=== PATIENT | male | born 1960 | race Two or more races ===

== ENCOUNTER 2017-10-20 19:20 | Emergency (ER) | payer MEDICAID, MEDICARE, OTHER ==
[~2017-10-20] VITALS: Ht 172.7 cm; Wt 102.1 kg
[~2017-10-20 19:20] MED LIST: HYDR-1421
[2017-10-20 20:34] VITALS: BP 130/84
[2017-10-20 21:07] LABS: Basophils # (auto) 0 uL; Basophils % (auto) 0.6 % (0.0-2.0); Eosinophils # (auto) 0.2 uL; Eosinophils % (auto) 2.1 % (0.0-7.0); Hematocrit 45.9 % (41.0-53.0); Hemoglobin 15.6 g/dL (13.5-17.5); Lymphocytes # (auto) 1.8 uL; Lymphocytes % (auto) 23.1 % (10.0-50.0); Mean Corpuscular Hgb Conc. 33.9 g/dL (32.0-36.0); Mean Corpuscular Volume 97.5 fL (80.0-100.0); Monocytes # (auto) 0.9 uL; Monocytes % (auto) 11.4 % (0.0-12.0); Neutrophils # (auto) 4.9 uL; Neutrophils % (auto) 62.8 % (37.0-80.0); Nucleated Red Blood Cells % 0.1 %; Platelet Count (auto) 144 10^3/uL (140-450); Red Blood Cells 4.71 10^6/uL (4.5-5.90); Red Cell Distribution Width 12.4 % (11.8-14.3); White Blood Cell 7.8 10^3/uL (4.4-10.8)
[2017-10-20 21:23] LABS: Albumin 3.7 g/dL (3.4-5.0); BUN/Creatinine Ratio 18.5; Bilirubin, Total 0.4 mg/dL (0.2-1.0); Calcium 8.9 mg/dL (8.5-10.1); Magnesium 2.4 mg/dL (1.6-2.6); Potassium 4.3 mmol/L (3.5-5.1); Total Protein 7.8 g/dL (6.4-8.2)
== END 2017-10-20 23:00 | disposition left against medical advice (07) ==
LOC: ER 19:20
DX: R07.9 Chest pain, unspecified (principal); Z53.21 Procedure and treatment not carried out due to patient leaving prior to being seen by health care provider
CPT/HCPCS: 36415; 71045; 80053; 83735; 83880; 85025; 93005

== ENCOUNTER 2018-01-11 11:06 | Emergency (ER) | payer OTHER ==
[~2018-01-11] VITALS: Ht 172.7 cm; Wt 96.2 kg
[2018-01-11 11:59] LABS: Basophils # (auto) 0 uL; Basophils % (auto) 0.4 % (0.0-2.0); Eosinophils # (auto) 0.1 uL; Eosinophils % (auto) 1.2 % (0.0-7.0); Hematocrit 46.1 % (41.0-53.0); Hemoglobin 15.6 g/dL (13.5-17.5); Lymphocytes # (auto) 1.4 uL; Lymphocytes % (auto) 20.4 % (10.0-50.0); Mean Corpuscular Hemoglobin 32.6 pg (28.0-32.0); Mean Corpuscular Hgb Conc. 33.7 g/dL (32.0-36.0); Mean Corpuscular Volume 96.8 fL (80.0-100.0); Monocytes # (auto) 0.8 uL; Monocytes % (auto) 11.4 % (0.0-12.0); Neutrophils # (auto) 4.5 uL; Neutrophils % (auto) 66.6 % (37.0-80.0); Nucleated Red Blood Cells % 0.2 %; Platelet Count (auto) 122 10^3/uL (140-450); Red Blood Cells 4.77 10^6/uL (4.5-5.90); Red Cell Distribution Width 12.8 % (11.8-14.3); White Blood Cell 6.8 10^3/uL (4.4-10.8)
[2018-01-11 12:20] LABS: Alanine Aminotransferase 23 U/L (16-61); Albumin 3.8 g/dL (3.4-5.0); Alkaline Phosphatase 90 U/L (45-117); Anion Gap 4 (5-15); Aspartate Aminotransferase 14 U/L (15-37); BUN/Creatinine Ratio 11.3; Bilirubin, Total 0.7 mg/dL (0.2-1.0); Blood Urea Nitrogen 17 mg/dL (7-18); Calcium 8.5 mg/dL (8.5-10.1); Carbon Dioxide 27 mmol/L (21-32); Chloride 107 mmol/L (98-107); GFR African American 62 mL/min; GFR Non-African American 51 mL/min; Glucose 113 mg/dL (74-106); Potassium 4.5 mmol/L (3.5-5.1); Sodium 138 mmol/L (136-145); Total Protein 7.3 g/dL (6.4-8.2)
[2018-01-11] MEDS ORDERED: ASPirin 81 mg TAB PO ONE (13:00)
[2018-01-11] MEDS ORDERED: NITROGLYCERIN 0.4 MG SL TAB SL ONE (13:00)
[2018-01-11 13:58] VITALS: BP 128/86
== END 2018-01-11 15:01 | disposition home or self-care (01) ==
LOC: EDBD 11:06 → ER 11:11
DX: R07.2 Precordial pain (principal); F41.9 Anxiety disorder, unspecified; I25.10 Atherosclerotic heart disease of native coronary artery without angina pectoris; I10 Essential (primary) hypertension; I25.2 Old myocardial infarction; F12.10 Cannabis abuse, uncomplicated; Z98.61 Coronary angioplasty status
CPT/HCPCS: 36415; 71045; 80053; 84484; 85025; 93005; 94761

== ENCOUNTER 2021-10-15 15:06 | Inpatient (IN) | payer MEDICARE, OTHER ==
[~2021-10-15] VITALS: Ht 172.7 cm; Wt 82.0 kg
[~2021-10-15 15:06] MED LIST changes: +ALLO300T2 PO; +CLOP75TA28 PO; +COLCPOW2 PO; -HYDR-1421; +INDO50CA82 PO
[2021-10-15 16:21] LABS: Basophils # (auto) 0 10 ^3/uL (0-0.2); Basophils % (auto) 0.3 % (0.0-2.0); Eosinophils # (auto) 0 10 ^3/uL (0-0.8); Eosinophils % (auto) 0.2 % (0.0-7.0); Hematocrit 42.8 % (41.0-53.0); Hemoglobin 14.3 g/dL (13.5-17.5); Lymphocytes # (auto) 0.4 10 ^3/uL (0.4-5.4); Lymphocytes % (auto) 5.1 % (10.0-50.0); Mean Corpuscular Hemoglobin 32.9 pg (28.0-32.0); Mean Corpuscular Hgb Conc. 33.5 g/dL (32.0-36.0); Mean Corpuscular Volume 98.2 fL (80.0-100.0); Monocytes # (auto) 0.6 10 ^3/uL (0-1.3); Monocytes % (auto) 7.3 % (0.0-12.0); Neutrophils # (auto) 7.3 10 ^3/uL (1.6-8.6); Neutrophils % (auto) 87.1 % (37.0-80.0); Red Blood Cells 4.36 10^6/uL (4.5-5.90); Red Cell Distribution Width 12.6 % (11.8-14.3); White Blood Cell 8.4 10^3/uL (4.4-10.8)
[2021-10-15] MEDS ORDERED: DexAMETHasone SOD PHOS 10MG/1ML VIAL INJ IV ONE (16:30)
[2021-10-15 16:40] LABS: Albumin 2.9 g/dL (3.4-5.0); Calcium 8.7 mg/dL (8.5-10.1); Magnesium 2.7 mg/dL (1.6-2.6); Potassium 4.2 mmol/L (3.5-5.1)
[2021-10-15 16:46] LABS: BUN/Creatinine Ratio 12.3; Bilirubin, Total 0.7 mg/dL (0.2-1.0); Total Protein 6.9 g/dL (6.4-8.2)
[2021-10-15] MEDS ORDERED: HEPARIN SODIUM (PORCINE) 5000 UNITS/ML 1ML VIAL IV ONE (18:15)
[2021-10-15] MEDS ORDERED: ASPirin 325 MG TAB PO ONE (18:15)
[2021-10-15] MEDS: LACTATED RINGER'S 1,000 ML IV ONE ×2 (18:15→18:27)
[2021-10-15] MEDS ORDERED: CLOPIDOGREL BISULFATE 75 MG TAB PO ONE (18:15)
[2021-10-15] MEDS ORDERED: ONDANSETRON HCL 4 MG/2 ML VIAL IV PRN (22:45)
[2021-10-15] MEDS ORDERED: HYDROcodone-ACET 5/325MG TAB PO PRN (22:45)
[2021-10-15] MEDS ORDERED: DOCUSATE SOD 100 MG CAP PO PRN (22:45)
[2021-10-15] MEDS ORDERED: NITROGLYCERIN 0.4 MG SL TAB SL PRN (23:30)
[2021-10-15] MEDS: DOXYCYCLINE 100MG/250ML 250 ML IV SCH (23:47)
[2021-10-16] MEDS: SODIUM CHLOR 0.9% PF (SALINE LOCK) 10ML VIAL/SYR IV SCH ×3 (05:25→23:15)
[2021-10-16] MEDS: MULTIPLE VITAMIN TAB PO SCH (09:53)
[2021-10-16] MEDS: ZINC SULFATE 220mg CAP or TAB PO SCH (09:53)
[2021-10-16] MEDS: DexAMETHasone SOD PHOS 10MG/1ML VIAL INJ IV SCH (09:53)
[2021-10-16] MEDS: ASPirin 81 mg TAB PO SCH (09:53)
[2021-10-16] MEDS: FAMOTIDINE (10MG/ML) 2ML VL IV SCH ×2 (09:53→23:14)
[2021-10-16] MEDS: ASCORBIC ACID 1,000 MG TAB PO SCH (09:54)
[2021-10-16] MEDS: CHOLECALCIFEROL (VITD3) 2,000 UNIT CAP/TAB PO SCH (09:54)
[2021-10-16] MEDS: HEPARIN SODIUM (PORCINE) 5000 UNITS/ML 1ML VIAL SC SCH ×2 (09:55→23:16)
[2021-10-16] MEDS: BUDESONIDE (INHALATION) 180 MCG IH IN SCH ×2 (10:00→19:37)
[2021-10-16] MEDS: DOXYCYCLINE 100MG/250ML 250 ML IV SCH ×2 (10:26→23:15)
[2021-10-16 10:35] LABS: Basophils # (auto) 0 10 ^3/uL (0-0.2); Basophils % (auto) 0.1 % (0.0-2.0); Eosinophils # (auto) 0 10 ^3/uL (0-0.8); Hematocrit 42.8 % (41.0-53.0); Hemoglobin 14.2 g/dL (13.5-17.5); Lymphocytes # (auto) 0.4 10 ^3/uL (0.4-5.4); Mean Corpuscular Hemoglobin 32.6 pg (28.0-32.0); Mean Corpuscular Hgb Conc. 33.2 g/dL (32.0-36.0); Mean Corpuscular Volume 98.4 fL (80.0-100.0); Monocytes # (auto) 0.6 10 ^3/uL (0-1.3); Monocytes % (auto) 6.2 % (0.0-12.0); Neutrophils # (auto) 9.2 10 ^3/uL (1.6-8.6); Neutrophils % (auto) 89.7 % (37.0-80.0); Red Blood Cells 4.35 10^6/uL (4.5-5.90); Red Cell Distribution Width 12.5 % (11.8-14.3); White Blood Cell 10.2 10^3/uL (4.4-10.8)
[2021-10-16 10:55] LABS: Potassium 4.5 mmol/L (3.5-5.1)
[2021-10-16 11:05] LABS: Albumin 2.7 g/dL (3.4-5.0); BUN/Creatinine Ratio 18.6; Bilirubin, Total 0.6 mg/dL (0.2-1.0); Calcium 8.8 mg/dL (8.5-10.1); Total Protein 7.1 g/dL (6.4-8.2)
[2021-10-16] MEDS ORDERED: REMDESIVIR PER PHARMACY 0 ML IV SCH (12:15)
[2021-10-16 13:52] LABS: Urine Bacteria NONE SEEN /hpf (None Seen); Urine Blood Negative /uL (Negative); Urine Specific Gravity 1.026 (1.001-1.035); Urine WBC 1 /hpf (0 - 3)
[2021-10-16] MEDS: ALBUTEROL SULF HFA 90MCG INH 200DOSE IN PRN ×2 (14:05→19:37)
[2021-10-16] MEDS ORDERED: REMDESIVIR 200 MG in NS 210ml LOADING DOSE ADULT IV ONE (15:00)
[2021-10-16] MEDS ORDERED: CHOL1TAB42 PO (17:55)
[2021-10-16] MEDS ORDERED: SIMV-13 PO (17:55)
[2021-10-16] MEDS ORDERED: CARV3.1240 PO (17:55)
[2021-10-16] MEDS: guaiFENesin-DM 100/10mg/5ml SYR PO PRN (21:47)
[2021-10-16] MEDS ORDERED: DEXTROSE (50%) 50ML SYRG IV PRN (22:15)
[2021-10-16] MEDS ORDERED: FUROSEMIDE 20 MG/2 ML VIAL IV ONE (22:15)
[2021-10-16] MEDS ORDERED: HEPARIN SODIUM (PORCINE) 5000 UNITS/ML 1ML VIAL ONE (22:58)
[2021-10-16 23:26] VITALS: BP 119/73
[2021-10-17] MEDS: ACCU-CHEK COMFORT CURVE STRIP VI SCH ×4 (00:08→17:49)
[2021-10-17] MEDS: InsuLIN REG 1unit/0.01ml Soln (100units/ml) SC SCH ×4 (00:14→18:23)
[2021-10-17] MEDS: guaiFENesin-DM 100/10mg/5ml SYR PO PRN ×4 (05:15→22:21)
[2021-10-17] MEDS: SODIUM CHLOR 0.9% PF (SALINE LOCK) 10ML VIAL/SYR IV SCH ×3 (05:51→22:20)
[2021-10-17] MEDS: BUDESONIDE (INHALATION) 180 MCG IH IN SCH ×2 (06:02→21:54)
[2021-10-17] MEDS: ALBUTEROL SULF HFA 90MCG INH 200DOSE IN PRN ×2 (06:02→21:54)
[2021-10-17 06:48] LABS: Amphetamine Screen, Urine NEGATIVE (NEGATIVE); Barbiturate Scree,Urine NEGATIVE (NEGATIVE); Benzodiazephine Screen, Urine NEGATIVE (NEGATIVE); Cannabinoid Screen, Urine NEGATIVE (NEGATIVE)
[2021-10-17 06:53] LABS: Cocaine Screen, Urine NEGATIVE (NEGATIVE); Opiate Scree,Urine NEGATIVE (NEGATIVE); Phencyclidine Screen, Urine NEGATIVE (NEGATIVE)
[2021-10-17 07:35] LABS: Basophils # (auto) 0 10 ^3/uL (0-0.2); Eosinophils # (auto) 0 10 ^3/uL (0-0.8); Hematocrit 43.9 % (41.0-53.0); Hemoglobin 14.8 g/dL (13.5-17.5); Lymphocytes # (auto) 0.4 10 ^3/uL (0.4-5.4); Lymphocytes % (auto) 2.7 % (10.0-50.0); Mean Corpuscular Hemoglobin 32.9 pg (28.0-32.0); Mean Corpuscular Hgb Conc. 33.6 g/dL (32.0-36.0); Mean Corpuscular Volume 97.8 fL (80.0-100.0); Monocytes # (auto) 0.8 10 ^3/uL (0-1.3); Monocytes % (auto) 5.7 % (0.0-12.0); Neutrophils # (auto) 13.1 10 ^3/uL (1.6-8.6); Neutrophils % (auto) 91.6 % (37.0-80.0); Nucleated Red Blood Cells % 0.1 %; Red Blood Cells 4.49 10^6/uL (4.5-5.90); Red Cell Distribution Width 12.8 % (11.8-14.3); White Blood Cell 14.3 10^3/uL (4.4-10.8)
[2021-10-17 07:46] LABS: INR 1.76 (0.9-1.15)
[2021-10-17 08:00] VITALS: BP 110/66
[2021-10-17 08:04] LABS: Lactic Acid w/Reflex 2.4 mmol/L (0.4-2.0)
[2021-10-17 08:05] LABS: Albumin 2.8 g/dL (3.4-5.0); BUN/Creatinine Ratio 21.8; Bilirubin, Total 0.6 mg/dL (0.2-1.0); Cholesterol 110 mg/dL (< 200); HDL Cholesterol 12 mg/dL (40-59); LDL Cholesterol 66 mg/dL (< 100); Magnesium 2.3 mg/dL (1.6-2.6); Total Protein 7.5 g/dL (6.4-8.2); Triglycerides 112 mg/dL (< 150)
[2021-10-17 08:06] LABS: Thyroid Stimulating Hormone 0.46 uIU/mL (0.358-3.74)
[2021-10-17 09:00] VITALS: BP 110/66
[2021-10-17] MEDS: MULTIPLE VITAMIN TAB PO SCH (09:27)
[2021-10-17] MEDS: FAMOTIDINE (10MG/ML) 2ML VL IV SCH ×2 (09:27→22:20)
[2021-10-17] MEDS: ASPirin 81 mg TAB PO SCH (09:27)
[2021-10-17] MEDS: ASCORBIC ACID 1,000 MG TAB PO SCH (09:27)
[2021-10-17] MEDS: IVERMECTIN 3 MG TAB PO SCH (09:27)
[2021-10-17] MEDS: DexAMETHasone SOD PHOS 10MG/1ML VIAL INJ IV SCH (09:28)
[2021-10-17] MEDS: CHOLECALCIFEROL (VITD3) 2,000 UNIT CAP/TAB PO SCH (09:28)
[2021-10-17] MEDS: CLOPIDOGREL BISULFATE 75 MG TAB PO SCH (09:28)
[2021-10-17] MEDS: ZINC SULFATE 220mg CAP or TAB PO SCH (09:28)
[2021-10-17] MEDS: DOXYCYCLINE 100MG/250ML 250 ML IV SCH ×2 (09:29→22:20)
[2021-10-17 09:32] LABS: CRP High Sensitivity > 19.0 mg/dL (< 0.3)
[2021-10-17] MEDS: HEPARIN SODIUM (PORCINE) 5000 UNITS/ML 1ML VIAL SC SCH ×2 (09:51→22:21)
[2021-10-17 13:00] VITALS: BP 113/62
[2021-10-17] MEDS: REMDESIVIR 100mg 100 MG in SODIUM CHL 0.9% 230 ML IV SCH (15:02)
[2021-10-17 16:56] VITALS: BP 113/63
[2021-10-17 20:00] VITALS: BP 124/96
[2021-10-17 22:00] VITALS: BP 124/96
[2021-10-17] MEDS: ATORVASTATIN 20 MG TAB PO SCH (22:20)
[2021-10-18] MEDS: InsuLIN REG 1unit/0.01ml Soln (100units/ml) SC SCH ×4 (00:36→17:54)
[2021-10-18] MEDS: guaiFENesin-DM 100/10mg/5ml SYR PO PRN ×3 (03:44→21:40)
[2021-10-18 05:00] VITALS: BP 153/75
[2021-10-18] MEDS: ACCU-CHEK COMFORT CURVE STRIP VI SCH ×4 (06:10→17:53)
[2021-10-18] MEDS: SODIUM CHLOR 0.9% PF (SALINE LOCK) 10ML VIAL/SYR IV SCH ×3 (06:13→21:43)
[2021-10-18 06:14] LABS: Basophils # (auto) 0 10 ^3/uL (0-0.2); Eosinophils # (auto) 0 10 ^3/uL (0-0.8); Hematocrit 41.6 % (41.0-53.0); Lymphocytes # (auto) 0.7 10 ^3/uL (0.4-5.4); Lymphocytes % (auto) 8.5 % (10.0-50.0); Mean Corpuscular Hemoglobin 33.1 pg (28.0-32.0); Mean Corpuscular Hgb Conc. 33.6 g/dL (32.0-36.0); Mean Corpuscular Volume 98.5 fL (80.0-100.0); Monocytes # (auto) 0.8 10 ^3/uL (0-1.3); Monocytes % (auto) 10.5 % (0.0-12.0); Neutrophils # (auto) 6.5 10 ^3/uL (1.6-8.6); Nucleated Red Blood Cells % 0.1 %; Red Blood Cells 4.22 10^6/uL (4.5-5.90); Red Cell Distribution Width 13.4 % (11.8-14.3)
[2021-10-18 06:23] LABS: Potassium 4.5 mmol/L (3.5-5.1)
[2021-10-18 06:33] LABS: Albumin 2.5 g/dL (3.4-5.0); BUN/Creatinine Ratio 24.1; Bilirubin, Total 0.7 mg/dL (0.2-1.0); Calcium 8.3 mg/dL (8.5-10.1); Total Protein 6.7 g/dL (6.4-8.2)
[2021-10-18] MEDS: BUDESONIDE (INHALATION) 180 MCG IH IN SCH ×2 (07:36→23:10)
[2021-10-18] MEDS: ALBUTEROL SULF HFA 90MCG INH 200DOSE IN PRN (07:36)
[2021-10-18] MEDS: DexAMETHasone SOD PHOS 10MG/1ML VIAL INJ IV SCH (09:38)
[2021-10-18] MEDS: ASPirin 81 mg TAB PO SCH (09:38)
[2021-10-18] MEDS: FAMOTIDINE (10MG/ML) 2ML VL IV SCH ×2 (09:38→21:40)
[2021-10-18] MEDS: DOXYCYCLINE 100MG/250ML 250 ML IV SCH ×2 (09:38→21:44)
[2021-10-18] MEDS: ASCORBIC ACID 1,000 MG TAB PO SCH (09:39)
[2021-10-18] MEDS: IVERMECTIN 3 MG TAB PO SCH (09:39)
[2021-10-18] MEDS: CLOPIDOGREL BISULFATE 75 MG TAB PO SCH (09:39)
[2021-10-18] MEDS: ZINC SULFATE 220mg CAP or TAB PO SCH (09:39)
[2021-10-18] MEDS: MULTIPLE VITAMIN TAB PO SCH (09:39)
[2021-10-18] MEDS: CHOLECALCIFEROL (VITD3) 2,000 UNIT CAP/TAB PO SCH (09:40)
[2021-10-18] MEDS: HEPARIN SODIUM (PORCINE) 5000 UNITS/ML 1ML VIAL SC SCH ×2 (09:49→21:44)
[2021-10-18] MEDS ORDERED: SALINE 0.65 % NASAL SPRAY 45ML BOTTLE EACHNOSTRI PRN (11:45)
[2021-10-18] MEDS ORDERED: diphenhdrAMINE HCL 25 MG CAP PO PRN (11:45)
[2021-10-18 14:00] VITALS: BP 108/76
[2021-10-18] MEDS: REMDESIVIR 100mg 100 MG in SODIUM CHL 0.9% 230 ML IV SCH (15:21)
[2021-10-18 17:06] VITALS: BP 129/69
[2021-10-18 20:00] VITALS: BP 148/77
[2021-10-18] MEDS: ATORVASTATIN 20 MG TAB PO SCH (21:40)
[2021-10-18] MEDS: MORPHINE SULFATE INJECTION 2 MG/ML SYRG IV PRN (22:08)
[2021-10-18 22:10] VITALS: BP 148/77
[2021-10-18] MEDS ORDERED: PROMETHAZINE W/CODEINE 5 ML ORAL SYRUP PO PRN (23:45)
[2021-10-18] MEDS ORDERED: LORazepam 0.5 MG TAB PO PRN (23:45)
[2021-10-19] MEDS: ACCU-CHEK COMFORT CURVE STRIP VI SCH ×4 (00:27→17:26)
[2021-10-19] MEDS: InsuLIN REG 1unit/0.01ml Soln (100units/ml) SC SCH ×4 (00:37→17:27)
[2021-10-19] MEDS: ALBUTEROL SULF HFA 90MCG INH 200DOSE IN PRN ×2 (00:54→09:27)
[2021-10-19 05:00] VITALS: BP 142/79
[2021-10-19] MEDS: SODIUM CHLOR 0.9% PF (SALINE LOCK) 10ML VIAL/SYR IV SCH ×3 (05:42→22:07)
[2021-10-19 07:31] LABS: Calcium 8.6 mg/dL (8.5-10.1); Potassium 4.6 mmol/L (3.5-5.1)
[2021-10-19 07:50] LABS: INR 1.31 (0.9-1.15)
[2021-10-19 09:00] VITALS: BP 120/64
[2021-10-19] MEDS: BUDESONIDE (INHALATION) 180 MCG IH IN SCH ×2 (09:27→22:00)
[2021-10-19] MEDS: MORPHINE SULFATE INJECTION 2 MG/ML SYRG IV PRN ×4 (11:00→18:17)
[2021-10-19] MEDS: ENOXAPARIN SOD 100 MG/1 ML SYRINGE SC SCH ×2 (11:00→22:08)
[2021-10-19] MEDS: ASCORBIC ACID 1,000 MG TAB PO SCH (11:00)
[2021-10-19] MEDS: MULTIPLE VITAMIN TAB PO SCH (11:00)
[2021-10-19] MEDS: CHOLECALCIFEROL (VITD3) 2,000 UNIT CAP/TAB PO SCH (11:00)
[2021-10-19] MEDS: FAMOTIDINE (10MG/ML) 2ML VL IV SCH ×2 (11:00→22:07)
[2021-10-19] MEDS: ZINC SULFATE 220mg CAP or TAB PO SCH (11:00)
[2021-10-19] MEDS: CLOPIDOGREL BISULFATE 75 MG TAB PO SCH (11:00)
[2021-10-19] MEDS: ASPirin 81 mg TAB PO SCH (11:00)
[2021-10-19] MEDS: DexAMETHasone SOD PHOS 10MG/1ML VIAL INJ IV SCH (11:00)
[2021-10-19] MEDS: DOXYCYCLINE 100MG/250ML 250 ML IV SCH ×2 (11:00→22:08)
[2021-10-19] MEDS: IVERMECTIN 3 MG TAB PO SCH (11:00)
[2021-10-19] MEDS ORDERED: MORPHINE SULFATE INJECTION 2 MG/ML SYRG IV PRN (12:00)
[2021-10-19] MEDS ORDERED: IOHEXOL 350 MG/ML 100ML IJ ONE (12:05)
[2021-10-19 12:30] VITALS: BP 139/75
[2021-10-19] MEDS ORDERED: LACTULOSE 20Gm/30ML SOLN PO PRN (13:00)
[2021-10-19] MEDS: REMDESIVIR 100mg 100 MG in SODIUM CHL 0.9% 230 ML IV SCH (15:49)
[2021-10-19 17:00] VITALS: BP 124/65
[2021-10-19] MEDS ORDERED: NITROGLYCERIN 0.2MG/HR TOPICAL PATCH TD ONE (17:15)
[2021-10-19] MEDS ORDERED: guaiFENesin-DM 100/10mg/5ml SYR PO PRN (17:15)
[2021-10-19] MEDS: ACETYLCYSTEINE ORAL for CIN 20%(200MG/ML) 4ML PO SCH ×2 (17:26→22:08)
[2021-10-19] MEDS: ACETAMINOPHEN 500 MG TAB PO PRN (18:17)
[2021-10-19 22:00] VITALS: BP 113/57
[2021-10-20] VITALS (30 sets, daily range): BP systolic 64–156; BP diastolic 39–100
[2021-10-20] MEDS: ACCU-CHEK COMFORT CURVE STRIP VI SCH ×4 (00:09→18:13)
[2021-10-20] MEDS: InsuLIN REG 1unit/0.01ml Soln (100units/ml) SC SCH ×5 (00:10→23:36)
[2021-10-20] MEDS: MORPHINE SULFATE INJECTION 2 MG/ML SYRG IV PRN ×2 (01:37→04:30)
[2021-10-20] MEDS: SODIUM CHLOR 0.9% PF (SALINE LOCK) 10ML VIAL/SYR IV SCH ×3 (06:14→23:00)
[2021-10-20] MEDS: ALBUTEROL SULF HFA 90MCG INH 200DOSE IN PRN (07:22)
[2021-10-20] MEDS: BUDESONIDE (INHALATION) 180 MCG IH IN SCH ×2 (07:22→22:00)
[2021-10-20 07:30] LABS: Basophils # (auto) 0 10 ^3/uL (0-0.2); Basophils % (auto) 0.1 % (0.0-2.0); Eosinophils # (auto) 0 10 ^3/uL (0-0.8); Eosinophils % (auto) 0.3 % (0.0-7.0); Hematocrit 42.7 % (41.0-53.0); Hemoglobin 14.4 g/dL (13.5-17.5); Lymphocytes # (auto) 0.8 10 ^3/uL (0.4-5.4); Lymphocytes % (auto) 7.2 % (10.0-50.0); Mean Corpuscular Hemoglobin 32.7 pg (28.0-32.0); Mean Corpuscular Hgb Conc. 33.7 g/dL (32.0-36.0); Mean Corpuscular Volume 97.1 fL (80.0-100.0); Monocytes # (auto) 0.3 10 ^3/uL (0-1.3); Monocytes % (auto) 2.4 % (0.0-12.0); Neutrophils # (auto) 10.5 10 ^3/uL (1.6-8.6); Nucleated Red Blood Cells % 0.1 %; Red Cell Distribution Width 13.2 % (11.8-14.3); White Blood Cell 11.6 10^3/uL (4.4-10.8)
[2021-10-20 07:31] LABS: INR 1.41 (0.9-1.15); Partial Thromboplastin Time 31.4 sec (23.6-33.0)
[2021-10-20 07:39] LABS: Potassium 4.3 mmol/L (3.5-5.1)
[2021-10-20 08:07] LABS: Albumin 2.4 g/dL (3.4-5.0); BUN/Creatinine Ratio 23.5; Bilirubin, Total 0.8 mg/dL (0.2-1.0); Calcium 8.4 mg/dL (8.5-10.1); Total Protein 6.8 g/dL (6.4-8.2)
[2021-10-20] MEDS ORDERED: VERAPAMIL 2.5MG/ML INJ 2ML VIAL IV ONE ×2 (08:59→17:32)
[2021-10-20] MEDS ORDERED: LIDOCAINE 2%HCL (LOCAL ANESTH.) INJ 20ML MDV ONE ×2 (08:59→16:36)
[2021-10-20] MEDS ORDERED: HEPARIN IN NS 1000Units/500mL 0 ML ONE (08:59)
[2021-10-20] MEDS ORDERED: HEPARIN SODIUM (PORCINE) 5000 UNITS/ML 1ML VIAL ONE ×3 (08:59→18:14)
[2021-10-20] MEDS ORDERED: IOHEXOL 350 MG/ML 100ML IJ ONE (08:59)
[2021-10-20] MEDS ORDERED: SODIUM CHL 0.9% 0 ML ONE ×2 (09:06→16:44)
[2021-10-20] MEDS ORDERED: ANGIOMAX 250 MG VIAL IV ONE ×2 (09:06→16:44)
[2021-10-20] MEDS ORDERED: MIDAZOLAM HCL 2MG/2ML 2ml VIAL (1mg/ml) ONE (09:06)
[2021-10-20] MEDS ORDERED: fentaNYL CITRATE 100 MCG/2 ML VL ONE (09:06)
[2021-10-20] MEDS: CLOPIDOGREL BISULFATE 75 MG TAB PO SCH (10:00)
[2021-10-20] MEDS: CHOLECALCIFEROL (VITD3) 2,000 UNIT CAP/TAB PO SCH (10:00)
[2021-10-20] MEDS: NITROGLYCERIN 0.2MG/HR TOPICAL PATCH TD SCH (10:00)
[2021-10-20] MEDS: ENOXAPARIN SOD 100 MG/1 ML SYRINGE SC SCH ×2 (10:00→22:00)
[2021-10-20] MEDS: IVERMECTIN 3 MG TAB PO SCH (10:00)
[2021-10-20] MEDS: ACETYLCYSTEINE ORAL for CIN 20%(200MG/ML) 4ML PO SCH ×2 (10:00→23:00)
[2021-10-20] MEDS: ASCORBIC ACID 1,000 MG TAB PO SCH (10:00)
[2021-10-20] MEDS: FAMOTIDINE (10MG/ML) 2ML VL IV SCH ×2 (10:36→23:00)
[2021-10-20] MEDS: DOXYCYCLINE 100MG/250ML 250 ML IV SCH (10:36)
[2021-10-20] MEDS: ZINC SULFATE 220mg CAP or TAB PO SCH (10:38)
[2021-10-20] MEDS: MULTIPLE VITAMIN TAB PO SCH (10:38)
[2021-10-20] MEDS: ASPirin 81 mg TAB PO SCH (10:45)
[2021-10-20] MEDS: DexAMETHasone SOD PHOS 10MG/1ML VIAL INJ IV SCH (11:30)
[2021-10-20] MEDS ORDERED: ETOMIDATE (2MG/ML) 20ML VIAL IV ONE (11:52)
[2021-10-20] MEDS ORDERED: SUCCINYLCHOLINE CHLORIDE 20 MG/ML 10ML VIAL IV ONE (11:52)
[2021-10-20] MEDS ORDERED: ROCURONIUM 10MG/ML 10ML VIAL IV ONE ×2 (11:52→22:01)
[2021-10-20] MEDS ORDERED: NOREPINEPHRINE 8 MG/250ML KIT 250 ML IV ONE (11:57)
[2021-10-20] MEDS ORDERED: PROPOFOL 100 ML IV ONE (11:57)
[2021-10-20] MEDS ORDERED: MIDAZOLAM DRIP 50 mg/50mL 50 ML IV ONE (11:57)
[2021-10-20] MEDS ORDERED: fentaNYL Drip 2500mCg/250mlNS 250 ML IV ONE (11:57)
[2021-10-20] MEDS: MIDAZOLAM DRIP 50 mg/50mL 50 ML IV SCH ×3 (12:50→23:30)
[2021-10-20] MEDS ORDERED: IODIXANOL 320MG/ML 100ML BTL IV ONE (16:36)
[2021-10-20] MEDS ORDERED: HEPARIN IN NS 1000Units/500mL 1,500 ML ONE (16:37)
[2021-10-20] MEDS ORDERED: SODIUM BICARBONATE 8.4 % INJ 50ML VIAL IV ONE ×2 (17:26→21:30)
[2021-10-20] MEDS ORDERED: NOREPINEPHRINE 8 MG/250ML KIT 250 ML IV SCH (17:45)
[2021-10-20] MEDS ORDERED: PHENYLEPHRINE IV 250 ML IV ONE (17:50)
[2021-10-20] MEDS: PROPOFOL 100 ML IV SCH ×2 (18:12→22:00)
[2021-10-20] MEDS: fentaNYL Drip 2500mCg/250mlNS 250 ML IV SCH (18:12)
[2021-10-20] MEDS ORDERED: HEPARIN 1,000 UNITS/ml 1ML VIAL ONE ×2 (18:14→18:19)
[2021-10-20] MEDS ORDERED: HEPARIN DRIP/D5W 100UNITS/ML 250 ML IV ONE (18:19)
[2021-10-20] MEDS ORDERED: EPINEPHrine HCL 250 ML IV ONE (19:01)
[2021-10-20] MEDS ORDERED: VASOPRESSIN 20 UNIT/ML ONE (19:18)
[2021-10-20 19:45] LABS: Hematocrit 43.8 % (41.0-53.0); Hemoglobin 13.9 g/dL (13.5-17.5); Mean Corpuscular Hemoglobin 31.8 pg (28.0-32.0); Mean Corpuscular Hgb Conc. 31.7 g/dL (32.0-36.0); Mean Corpuscular Volume 100.4 fL (80.0-100.0); Red Blood Cells 4.36 10^6/uL (4.5-5.90); Red Cell Distribution Width 14.2 % (11.8-14.3); White Blood Cell 26.1 10^3/uL (4.4-10.8)
[2021-10-20 19:48] LABS: Basophils % (manual) 0 (0.0-2.0); Blast Cells 0; Eosinophils % (manual) 0 (0-7); Metamyelocytes % 0; Myelocytes % 0; Reactive Lymphocytes 0
[2021-10-20] MEDS: PHENYLEPHRINE INJ 80 MG in SODIUM CHL 0.9% 242 ML IV SCH (20:00)
[2021-10-20 20:15] LABS: INR 1.82 (0.9-1.15)
[2021-10-20] MEDS: NOREPINEPHRINE BITARTRATE 32 MG in SODIUM CHL 0.9% 218 ML IV SCH (20:15)
[2021-10-20 20:17] LABS: Band Neutrophils % (manual) 2; Lymphocytes % (manual) 3 (10.0-50.0); Monocytes % (manual) 1 (0-12); Promyelocytes % 1
[2021-10-20 20:25] LABS: Partial Thromboplastin Time > 139.0 sec (23.6-33.0)
[2021-10-20] MEDS ORDERED: VASOPRESSIN 50 UNITS in D5W 5% 247.5 ML IV SCH (20:45)
[2021-10-20] MEDS: EPINEPHrine HCL 250 ML IV SCH (20:45)
[2021-10-20] MEDS ORDERED: BUMETANIDE 1mg/4ml VIAL (0.25mg/ml) ONE (20:54)
[2021-10-20] MEDS ORDERED: BUMETANIDE INJECTION 10 ML ONE (20:54)
[2021-10-20] MEDS ORDERED: SODIUM BICARBONATE 8.4% INJ 50ML SYRINGE ONE (21:28)
[2021-10-20] MEDS ORDERED: ROCURONIUM BROMIDE 1,000 MG in D5W 5% 150 ML IV SCH (21:30)
[2021-10-20] MEDS ORDERED: BUMETANIDE 2.5mg/10ml (0.25 mg/ml) INJ IV ONE (21:30)
[2021-10-20] MEDS: REMDESIVIR 100mg 100 MG in SODIUM CHL 0.9% 230 ML IV SCH (22:00)
[2021-10-21] VITALS (28 sets, daily range): BP systolic 0–145; BP diastolic 0–106
[2021-10-21] MEDS ORDERED: ENOXAPARIN SOD 100 MG/1 ML SYRINGE SC SCH (00:45)
[2021-10-21] MEDS: PROPOFOL 100 ML IV SCH ×6 (01:00→21:14)
[2021-10-21 01:38] LABS: INR 1.64 (0.9-1.15)
[2021-10-21 01:41] LABS: Partial Thromboplastin Time 74.9 sec (23.6-33.0)
[2021-10-21 01:51] LABS: Albumin 2.1 g/dL (3.4-5.0); BUN/Creatinine Ratio 14.2; Calcium 7.4 mg/dL (8.5-10.1); Potassium 4.5 mmol/L (3.5-5.1)
[2021-10-21 01:54] LABS: Bilirubin, Total 1.3 mg/dL (0.2-1.0); Total Protein 6.5 g/dL (6.4-8.2)
[2021-10-21] MEDS: MIDAZOLAM DRIP 50 mg/50mL 50 ML IV SCH ×5 (04:00→21:15)
[2021-10-21 04:47] LABS: Hematocrit 44.4 % (41.0-53.0); Mean Corpuscular Hgb Conc. 33.7 g/dL (32.0-36.0); Mean Corpuscular Volume 97.9 fL (80.0-100.0); Red Blood Cells 4.54 10^6/uL (4.5-5.90); Red Cell Distribution Width 13.9 % (11.8-14.3); White Blood Cell 21.8 10^3/uL (4.4-10.8)
[2021-10-21 04:50] LABS: Basophils % (manual) 0 (0.0-2.0); Blast Cells 0; Eosinophils % (manual) 0 (0-7); Metamyelocytes % 0; Monocytes % (manual) 0 (0-12); Myelocytes % 0; Promyelocytes % 0; Reactive Lymphocytes 0
[2021-10-21 04:59] LABS: INR 1.6 (0.9-1.15)
[2021-10-21 05:10] LABS: BUN/Creatinine Ratio 16.5; Band Neutrophils % (manual) 5; Calcium 7.5 mg/dL (8.5-10.1); Lymphocytes % (manual) 6 (10.0-50.0); Magnesium 2.7 mg/dL (1.6-2.6)
[2021-10-21] MEDS: InsuLIN REG 1unit/0.01ml Soln (100units/ml) SC SCH ×4 (05:12→20:37)
[2021-10-21 05:29] LABS: Bilirubin, Total 1.6 mg/dL (0.2-1.0); Total Protein 6.6 g/dL (6.4-8.2)
[2021-10-21] MEDS: ACCU-CHEK COMFORT CURVE STRIP VI SCH ×5 (05:52→20:06)
[2021-10-21] MEDS: SODIUM CHLOR 0.9% PF (SALINE LOCK) 10ML VIAL/SYR IV SCH ×3 (06:15→22:11)
[2021-10-21] MEDS: fentaNYL Drip 2500mCg/250mlNS 250 ML IV SCH ×2 (07:15→19:05)
[2021-10-21] MEDS: NITROGLYCERIN 0.2MG/HR TOPICAL PATCH TD SCH (10:00)
[2021-10-21 10:04] LABS: INR 1.56 (0.9-1.15); Partial Thromboplastin Time 57.6 sec (23.6-33.0)
[2021-10-21] MEDS: FAMOTIDINE (10MG/ML) 2ML VL IV SCH (10:28)
[2021-10-21] MEDS: DexAMETHasone SOD PHOS 10MG/1ML VIAL INJ IV SCH (10:28)
[2021-10-21] MEDS: ASPirin 81 mg TAB PO SCH (10:29)
[2021-10-21] MEDS: ZINC SULFATE 220mg CAP or TAB PO SCH (10:29)
[2021-10-21] MEDS ORDERED: DEXTROSE (50%) 50ML SYRG IV PRN ×2 (10:30→10:45)
[2021-10-21] MEDS: CLOPIDOGREL BISULFATE 75 MG TAB PO SCH (10:31)
[2021-10-21] MEDS: MULTIPLE VITAMIN TAB PO SCH (10:31)
[2021-10-21] MEDS: IVERMECTIN 3 MG TAB PO SCH (10:32)
[2021-10-21] MEDS: CHOLECALCIFEROL (VITD3) 2,000 UNIT CAP/TAB PO SCH (10:32)
[2021-10-21] MEDS: ASCORBIC ACID 1,000 MG TAB PO SCH (10:32)
[2021-10-21] MEDS ORDERED: MEROPENEM 500MG IVPB 50 ML IV ONE (11:30)
[2021-10-21] MEDS ORDERED: InsuLIN REG 1unit/0.01ml Soln (100units/ml) SC SCH (12:00)
[2021-10-21] MEDS ORDERED: ACCU-CHEK COMFORT CURVE STRIP VI SCH (12:00)
[2021-10-21] MEDS ORDERED: SODIUM BICARBONATE 8.4% INJ 50ML SYRINGE IV ONE (12:35)
[2021-10-21] MEDS: HEPARIN DRIP/D5W 100UNITS/ML 250 ML IV SCH ×2 (13:10→23:30)
[2021-10-21] MEDS: PHENYLEPHRINE INJ 80 MG in SODIUM CHL 0.9% 242 ML IV SCH (13:16)
[2021-10-21] MEDS: NOREPINEPHRINE BITARTRATE 32 MG in SODIUM CHL 0.9% 218 ML IV SCH (13:16)
[2021-10-21 16:07] LABS: INR 1.52 (0.9-1.15)
[2021-10-21] MEDS: BUMETANIDE 2.5mg/10ml (0.25 mg/ml) INJ IV SCH (17:20)
[2021-10-21] MEDS: EPINEPHrine HCL 250 ML IV SCH (20:45)
[2021-10-21] MEDS: MEROPENEM 500MG IVPB 50 ML IV SCH (22:11)
[2021-10-21 22:35] LABS: INR 1.47 (0.9-1.15)
[2021-10-21 23:08] LABS: Partial Thromboplastin Time > 139.0 sec (23.6-33.0)
[2021-10-22] VITALS (27 sets, daily range): BP systolic 91–159; BP diastolic 33–90
[2021-10-22] MEDS: ACCU-CHEK COMFORT CURVE STRIP VI SCH ×7 (00:11→23:33)
[2021-10-22] MEDS: ACETAMINOPHEN 500 MG TAB PO PRN (00:11)
[2021-10-22] MEDS: InsuLIN REG 1unit/0.01ml Soln (100units/ml) SC SCH ×7 (00:41→23:34)
[2021-10-22] MEDS: PROPOFOL 100 ML IV SCH ×3 (00:48→14:00)
[2021-10-22] MEDS: MIDAZOLAM DRIP 50 mg/50mL 50 ML IV SCH ×3 (01:01→16:00)
[2021-10-22 05:29] LABS: Basophils # (auto) 0.2 10 ^3/uL (0-0.2); Eosinophils # (auto) 0 10 ^3/uL (0-0.8); Eosinophils % (auto) 0.1 % (0.0-7.0); Hematocrit 43.3 % (41.0-53.0); Hemoglobin 14.4 g/dL (13.5-17.5); Lymphocytes # (auto) 0.6 10 ^3/uL (0.4-5.4); Lymphocytes % (auto) 3.1 % (10.0-50.0); Mean Corpuscular Hemoglobin 32.2 pg (28.0-32.0); Mean Corpuscular Hgb Conc. 33.2 g/dL (32.0-36.0); Mean Corpuscular Volume 97.1 fL (80.0-100.0); Monocytes # (auto) 0.4 10 ^3/uL (0-1.3); Monocytes % (auto) 2.2 % (0.0-12.0); Neutrophils # (auto) 18.2 10 ^3/uL (1.6-8.6); Neutrophils % (auto) 93.6 % (37.0-80.0); Nucleated Red Blood Cells % 0.2 %; Red Blood Cells 4.46 10^6/uL (4.5-5.90); Red Cell Distribution Width 13.9 % (11.8-14.3); White Blood Cell 19.5 10^3/uL (4.4-10.8)
[2021-10-22] MEDS: BUMETANIDE 2.5mg/10ml (0.25 mg/ml) INJ IV SCH (05:39)
[2021-10-22 05:45] LABS: Albumin 1.7 g/dL (3.4-5.0); BUN/Creatinine Ratio 17.3; Calcium 7.1 mg/dL (8.5-10.1); Magnesium 2.5 mg/dL (1.6-2.6)
[2021-10-22 05:50] LABS: Lactic Acid w/Reflex 3.7 mmol/L (0.4-2.0)
[2021-10-22] MEDS: SODIUM CHLOR 0.9% PF (SALINE LOCK) 10ML VIAL/SYR IV SCH ×3 (06:01→21:51)
[2021-10-22 06:06] LABS: Bilirubin, Total 4.7 mg/dL (0.2-1.0); Total Protein 6.1 g/dL (6.4-8.2)
[2021-10-22 06:10] LABS: INR 1.37 (0.9-1.15); Partial Thromboplastin Time 39.9 sec (23.6-33.0)
[2021-10-22] MEDS: fentaNYL Drip 2500mCg/250mlNS 250 ML IV SCH ×3 (08:46→19:00)
[2021-10-22] MEDS: DexAMETHasone SOD PHOS 10MG/1ML VIAL INJ IV SCH (11:09)
[2021-10-22] MEDS: PANTOPRAZOLE 40 MG/10 ML VIAL INJ IV SCH (11:09)
[2021-10-22] MEDS: ASPirin 81 mg TAB PO SCH (11:09)
[2021-10-22] MEDS: CHOLECALCIFEROL (VITD3) 2,000 UNIT CAP/TAB PO SCH (11:10)
[2021-10-22] MEDS: ZINC SULFATE 220mg CAP or TAB PO SCH (11:10)
[2021-10-22] MEDS: ASCORBIC ACID 1,000 MG TAB PO SCH (11:10)
[2021-10-22] MEDS: CLOPIDOGREL BISULFATE 75 MG TAB PO SCH (11:10)
[2021-10-22] MEDS: MEROPENEM 500MG IVPB 50 ML IV SCH ×2 (11:40→21:53)
[2021-10-22] MEDS ORDERED: ROCURONIUM 10MG/ML 10ML VIAL IV ONE (12:00)
[2021-10-22] MEDS ORDERED: fentaNYL Drip 2500mCg/250mlNS 250 ML IV SCH (12:00)
[2021-10-22] MEDS ORDERED: DEXTROSE (50%) 50ML SYRG IV PRN (13:30)
[2021-10-22 14:21] LABS: INR 1.28 (0.9-1.15); Partial Thromboplastin Time 36.6 sec (23.6-33.0)
[2021-10-22] MEDS: NOREPINEPHRINE BITARTRATE 32 MG in SODIUM CHL 0.9% 218 ML IV SCH (17:03)
[2021-10-22 22:52] LABS: INR 1.26 (0.9-1.15); Partial Thromboplastin Time 48.8 sec (23.6-33.0)
[2021-10-23] VITALS (38 sets, daily range): BP systolic 93–164; BP diastolic 46–105
[2021-10-23] MEDS: MIDAZOLAM DRIP 50 mg/50mL 50 ML IV SCH ×5 (00:02→21:12)
[2021-10-23] MEDS: PROPOFOL 100 ML IV SCH ×3 (00:08→12:17)
[2021-10-23] MEDS: ACCU-CHEK COMFORT CURVE STRIP VI SCH ×5 (03:48→23:54)
[2021-10-23] MEDS: InsuLIN REG 1unit/0.01ml Soln (100units/ml) SC SCH ×6 (03:48→23:55)
[2021-10-23] MEDS: SODIUM CHLOR 0.9% PF (SALINE LOCK) 10ML VIAL/SYR IV SCH ×3 (05:31→22:05)
[2021-10-23] MEDS: HEPARIN DRIP/D5W 100UNITS/ML 250 ML IV SCH ×2 (06:06→23:30)
[2021-10-23 06:18] LABS: Basophils # (auto) 0.1 10 ^3/uL (0-0.2); Basophils % (auto) 0.7 % (0.0-2.0); Eosinophils # (auto) 0 10 ^3/uL (0-0.8); Hematocrit 45.3 % (41.0-53.0); INR 1.28 (0.9-1.15); Lymphocytes # (auto) 0.7 10 ^3/uL (0.4-5.4); Lymphocytes % (auto) 3.3 % (10.0-50.0); Mean Corpuscular Hemoglobin 32.2 pg (28.0-32.0); Mean Corpuscular Hgb Conc. 33.1 g/dL (32.0-36.0); Mean Corpuscular Volume 97.3 fL (80.0-100.0); Monocytes # (auto) 0.8 10 ^3/uL (0-1.3); Monocytes % (auto) 3.9 % (0.0-12.0); Neutrophils # (auto) 18.8 10 ^3/uL (1.6-8.6); Neutrophils % (auto) 92.1 % (37.0-80.0); Partial Thromboplastin Time 64.9 sec (23.6-33.0); Red Blood Cells 4.66 10^6/uL (4.5-5.90); Red Cell Distribution Width 14.5 % (11.8-14.3); White Blood Cell 20.4 10^3/uL (4.4-10.8)
[2021-10-23 07:29] LABS: Potassium 4.6 mmol/L (3.5-5.1)
[2021-10-23 07:30] LABS: Albumin 2.3 g/dL (3.4-5.0); BUN/Creatinine Ratio 21.7; Bilirubin, Total 6.6 mg/dL (0.2-1.0); Calcium 8.1 mg/dL (8.5-10.1); Total Protein 6.8 g/dL (6.4-8.2)
[2021-10-23] MEDS ORDERED: BUMETANIDE 2.5mg/10ml (0.25 mg/ml) INJ IV SCH (10:00)
[2021-10-23] MEDS: ASPirin 81 mg TAB PO SCH (10:07)
[2021-10-23] MEDS: MEROPENEM 500MG IVPB 50 ML IV SCH ×2 (10:07→22:08)
[2021-10-23] MEDS: DexAMETHasone SOD PHOS 10MG/1ML VIAL INJ IV SCH (10:07)
[2021-10-23] MEDS: PANTOPRAZOLE 40 MG/10 ML VIAL INJ IV SCH (10:07)
[2021-10-23] MEDS: CLOPIDOGREL BISULFATE 75 MG TAB PO SCH (10:07)
[2021-10-23] MEDS: ZINC SULFATE 220mg CAP or TAB PO SCH (10:07)
[2021-10-23] MEDS: CHOLECALCIFEROL (VITD3) 2,000 UNIT CAP/TAB PO SCH (10:07)
[2021-10-23] MEDS: ASCORBIC ACID 1,000 MG TAB PO SCH (10:07)
[2021-10-23] MEDS ORDERED: INSULIN LANTUS (GLARGINE) 1 /0.01ml (100units/ml) SC ONE (12:30)
[2021-10-23 12:44] LABS: Lactic Acid w/Reflex 2.4 mmol/L (0.4-2.0)
[2021-10-23 12:50] LABS: INR 1.21 (0.9-1.15)
[2021-10-23 13:56] LABS: Partial Thromboplastin Time 76.3 sec (23.6-33.0)
[2021-10-23] MEDS: NOREPINEPHRINE BITARTRATE 32 MG in SODIUM CHL 0.9% 218 ML IV SCH (21:06)
[2021-10-23 22:13] LABS: INR 1.21 (0.9-1.15); Partial Thromboplastin Time 67.5 sec (23.6-33.0)
[2021-10-24] VITALS (46 sets, daily range): BP systolic 99–142; BP diastolic 58–93
[2021-10-24] MEDS: fentaNYL Drip 2500mCg/250mlNS 250 ML IV SCH ×2 (02:00→21:51)
[2021-10-24] MEDS: ACCU-CHEK COMFORT CURVE STRIP VI SCH ×6 (04:00→23:39)
[2021-10-24 04:39] LABS: Basophils # (auto) 0 10 ^3/uL (0-0.2); Basophils % (auto) 0.2 % (0.0-2.0); Eosinophils # (auto) 0 10 ^3/uL (0-0.8); Hematocrit 45.4 % (41.0-53.0); Hemoglobin 14.8 g/dL (13.5-17.5); Lymphocytes # (auto) 0.7 10 ^3/uL (0.4-5.4); Lymphocytes % (auto) 3.9 % (10.0-50.0); Mean Corpuscular Hemoglobin 32.2 pg (28.0-32.0); Mean Corpuscular Hgb Conc. 32.7 g/dL (32.0-36.0); Mean Corpuscular Volume 98.5 fL (80.0-100.0); Monocytes # (auto) 1.2 10 ^3/uL (0-1.3); Monocytes % (auto) 6.6 % (0.0-12.0); Neutrophils % (auto) 89.3 % (37.0-80.0); Nucleated Red Blood Cells % 0.1 %; Red Blood Cells 4.62 10^6/uL (4.5-5.90); Red Cell Distribution Width 14.7 % (11.8-14.3); White Blood Cell 17.9 10^3/uL (4.4-10.8)
[2021-10-24] MEDS: InsuLIN REG 1unit/0.01ml Soln (100units/ml) SC SCH ×6 (04:40→23:41)
[2021-10-24 04:52] LABS: Protein, Urine 27.7 mg/dL (0.0-11.9)
[2021-10-24 04:56] LABS: Lactic Acid w/Reflex 2.4 mmol/L (0.4-2.0)
[2021-10-24 05:13] LABS: Potassium 5.2 mmol/L (3.5-5.1)
[2021-10-24 05:18] LABS: BUN/Creatinine Ratio 26.7; Calcium 8.7 mg/dL (8.5-10.1)
[2021-10-24 05:24] LABS: Urine Bacteria NONE SEEN /hpf (None Seen); Urine Blood TRACE /uL (Negative); Urine Specific Gravity 1.024 (1.001-1.035); Urine WBC 2 /hpf (0 - 3)
[2021-10-24] MEDS: HEPARIN DRIP/D5W 100UNITS/ML 250 ML IV SCH (05:24)
[2021-10-24 05:28] LABS: Bilirubin, Total 7.9 mg/dL (0.2-1.0); Total Protein 7.1 g/dL (6.4-8.2)
[2021-10-24] MEDS: SODIUM CHLOR 0.9% PF (SALINE LOCK) 10ML VIAL/SYR IV SCH ×3 (05:58→22:22)
[2021-10-24] MEDS: ASCORBIC ACID 1,000 MG TAB PO SCH (09:55)
[2021-10-24] MEDS: ZINC SULFATE 220mg CAP or TAB PO SCH (09:55)
[2021-10-24] MEDS: PANTOPRAZOLE 40 MG/10 ML VIAL INJ IV SCH (09:55)
[2021-10-24] MEDS: CLOPIDOGREL BISULFATE 75 MG TAB PO SCH (09:55)
[2021-10-24] MEDS: CHOLECALCIFEROL (VITD3) 2,000 UNIT CAP/TAB PO SCH (09:55)
[2021-10-24] MEDS: ASPirin 81 mg TAB PO SCH (09:55)
[2021-10-24] MEDS: DexAMETHasone SOD PHOS 10MG/1ML VIAL INJ IV SCH (09:55)
[2021-10-24] MEDS: MIDAZOLAM DRIP 50 mg/50mL 50 ML IV SCH ×2 (10:00→17:02)
[2021-10-24] MEDS: INSULIN LANTUS (GLARGINE) 1 /0.01ml (100units/ml) SC SCH (10:10)
[2021-10-24] MEDS: D5W 5% 1,000 ML IV SCH ×2 (11:31→19:00)
[2021-10-24] MEDS: MEROPENEM 500MG IVPB 50 ML IV SCH ×2 (12:49→21:55)
[2021-10-24] MEDS: PROPOFOL 100 ML IV SCH (16:53)
[2021-10-24] MEDS: NOREPINEPHRINE BITARTRATE 32 MG in SODIUM CHL 0.9% 218 ML IV SCH (18:45)
[2021-10-24] MEDS ORDERED: ATORVASTATIN 20 MG TAB PO SCH (22:00)
[2021-10-25] VITALS (33 sets, daily range): BP systolic 64–130; BP diastolic 42–83
[2021-10-25] MEDS: D5W 5% 1,000 ML IV SCH ×2 (01:15→07:56)
[2021-10-25] MEDS: MIDAZOLAM DRIP 50 mg/50mL 50 ML IV SCH ×4 (01:48→21:40)
[2021-10-25] MEDS: ACCU-CHEK COMFORT CURVE STRIP VI SCH ×5 (03:47→20:00)
[2021-10-25] MEDS: InsuLIN REG 1unit/0.01ml Soln (100units/ml) SC SCH ×5 (03:50→20:00)
[2021-10-25 05:11] LABS: Basophils # (auto) 0.3 10 ^3/uL (0-0.2); Basophils % (auto) 1.3 % (0.0-2.0); Eosinophils # (auto) 0.3 10 ^3/uL (0-0.8); Eosinophils % (auto) 1.6 % (0.0-7.0); Hematocrit 43.4 % (41.0-53.0); Hemoglobin 14.4 g/dL (13.5-17.5); Lymphocytes # (auto) 0.6 10 ^3/uL (0.4-5.4); Lymphocytes % (auto) 3.2 % (10.0-50.0); Mean Corpuscular Hgb Conc. 33.3 g/dL (32.0-36.0); Mean Corpuscular Volume 99.3 fL (80.0-100.0); Monocytes # (auto) 1.3 10 ^3/uL (0-1.3); Monocytes % (auto) 6.3 % (0.0-12.0); Neutrophils # (auto) 18.1 10 ^3/uL (1.6-8.6); Neutrophils % (auto) 87.6 % (37.0-80.0); Nucleated Red Blood Cells % 0.1 %; Red Blood Cells 4.37 10^6/uL (4.5-5.90); Red Cell Distribution Width 14.3 % (11.8-14.3); White Blood Cell 20.6 10^3/uL (4.4-10.8)
[2021-10-25 05:22] LABS: INR 1.21 (0.9-1.15); Partial Thromboplastin Time 57.8 sec (23.6-33.0)
[2021-10-25 05:31] LABS: Lactic Acid w/Reflex 2.4 mmol/L (0.4-2.0)
[2021-10-25 05:41] LABS: Albumin 1.9 g/dL (3.4-5.0); BUN/Creatinine Ratio 32.2; Calcium 8.4 mg/dL (8.5-10.1); Total Protein 6.9 g/dL (6.4-8.2)
[2021-10-25] MEDS: SODIUM CHLOR 0.9% PF (SALINE LOCK) 10ML VIAL/SYR IV SCH ×3 (05:55→22:00)
[2021-10-25] MEDS: Glucerna 1.2 Cal 1Liter BOTTLE GT SCH (05:55)
[2021-10-25 06:15] LABS: Bilirubin, Total 8.5 mg/dL (0.2-1.0)
[2021-10-25] MEDS ORDERED: SODIUM BICARBONATE 8.4% INJ 50ML SYRINGE ONE (09:17)
[2021-10-25] MEDS ORDERED: DEXTROSE 50% SYRINGE 50 ML IV ONE ×2 (09:18→09:19)
[2021-10-25] MEDS: ALBUTEROL SULF 2.5 MG/0.5ML(0.5%) NEB SOLN NEB PRN (09:46)
[2021-10-25] MEDS ORDERED: SODIUM ZIRCONIUM CYCL 10 GM PAK PO ONE (10:00)
[2021-10-25] MEDS ORDERED: D5W 5% 1,000 ML IV SCH (10:00)
[2021-10-25] MEDS ORDERED: DEXTROSE (50%) 50ML SYRG IV ONE ×2 (10:00→10:45)
[2021-10-25] MEDS ORDERED: SODIUM BICARBONATE 8.4 % INJ 50ML VIAL IV ONE ×2 (10:00→10:45)
[2021-10-25] MEDS: INSULIN LANTUS (GLARGINE) 1 /0.01ml (100units/ml) SC SCH (10:03)
[2021-10-25] MEDS: MEROPENEM 500MG IVPB 50 ML IV SCH ×2 (10:04→22:00)
[2021-10-25] MEDS: ZINC SULFATE 220mg CAP or TAB PO SCH (10:04)
[2021-10-25] MEDS: ASCORBIC ACID 1,000 MG TAB PO SCH (10:04)
[2021-10-25] MEDS: ASPirin 81 mg TAB PO SCH (10:04)
[2021-10-25] MEDS: CLOPIDOGREL BISULFATE 75 MG TAB PO SCH (10:04)
[2021-10-25] MEDS: CHOLECALCIFEROL (VITD3) 2,000 UNIT CAP/TAB PO SCH (10:04)
[2021-10-25] MEDS: PANTOPRAZOLE 40 MG/10 ML VIAL INJ IV SCH (10:04)
[2021-10-25] MEDS: DexAMETHasone SOD PHOS 10MG/1ML VIAL INJ IV SCH (10:04)
[2021-10-25] MEDS ORDERED: InsuLIN REG 1unit/0.01ml Soln (100units/ml) IV ONE (10:45)
[2021-10-25] MEDS: SODIUM ZIRCONIUM CYCL 10 GM PAK GT SCH ×3 (13:08→22:00)
[2021-10-25] MEDS: BUMETANIDE INJECTION 12.5 MG in GIVE UN-DILUTED 0 ML IV SCH (13:09)
[2021-10-25] MEDS: SOD CHL 0.45% 1,000 ML IV SCH ×4 (13:23→22:00)
[2021-10-25] MEDS: PROPOFOL 100 ML IV SCH (14:57)
[2021-10-25] MEDS: NOREPINEPHRINE BITARTRATE 32 MG in SODIUM CHL 0.9% 218 ML IV SCH (18:54)
[2021-10-25] MEDS: ACETAMINOPHEN 500 MG TAB PO PRN (20:10)
[2021-10-25] MEDS: fentaNYL Drip 2500mCg/250mlNS 250 ML IV SCH (22:00)
[2021-10-25] MEDS: HEPARIN DRIP/D5W 100UNITS/ML 250 ML IV SCH (23:30)
[2021-10-26] VITALS (42 sets, daily range): BP systolic 82–146; BP diastolic 52–81
[2021-10-26] MEDS: MIDAZOLAM DRIP 50 mg/50mL 50 ML IV SCH ×4 (01:30→23:40)
[2021-10-26] MEDS: ACCU-CHEK COMFORT CURVE STRIP VI SCH ×5 (04:00→18:01)
[2021-10-26] MEDS: InsuLIN REG 1unit/0.01ml Soln (100units/ml) SC SCH ×5 (04:00→17:26)
[2021-10-26 04:25] LABS: Basophils # (auto) 0.1 10 ^3/uL (0-0.2); Basophils % (auto) 0.3 % (0.0-2.0); Eosinophils # (auto) 0.3 10 ^3/uL (0-0.8); Eosinophils % (auto) 1.1 % (0.0-7.0); Hematocrit 39.1 % (41.0-53.0); Hemoglobin 12.6 g/dL (13.5-17.5); Lymphocytes # (auto) 1.2 10 ^3/uL (0.4-5.4); Lymphocytes % (auto) 5.1 % (10.0-50.0); Mean Corpuscular Hemoglobin 31.9 pg (28.0-32.0); Mean Corpuscular Hgb Conc. 32.4 g/dL (32.0-36.0); Mean Corpuscular Volume 98.5 fL (80.0-100.0); Monocytes # (auto) 0.7 10 ^3/uL (0-1.3); Monocytes % (auto) 2.7 % (0.0-12.0); Neutrophils # (auto) 21.6 10 ^3/uL (1.6-8.6); Neutrophils % (auto) 90.8 % (37.0-80.0); Nucleated Red Blood Cells % 0.1 %; Red Blood Cells 3.97 10^6/uL (4.5-5.90); Red Cell Distribution Width 14.4 % (11.8-14.3); White Blood Cell 23.8 10^3/uL (4.4-10.8)
[2021-10-26 04:32] LABS: INR 1.32 (0.9-1.15)
[2021-10-26] MEDS: fentaNYL Drip 2500mCg/250mlNS 250 ML IV SCH ×2 (04:40→17:25)
[2021-10-26 04:55] LABS: Potassium 5.3 mmol/L (3.5-5.1)
[2021-10-26 05:01] LABS: Albumin 1.8 g/dL (3.4-5.0); BUN/Creatinine Ratio 36.4; Bilirubin, Total 5.4 mg/dL (0.2-1.0); Total Protein 6.2 g/dL (6.4-8.2)
[2021-10-26] MEDS: SODIUM ZIRCONIUM CYCL 10 GM PAK GT SCH ×4 (06:20→22:00)
[2021-10-26] MEDS: SODIUM CHLOR 0.9% PF (SALINE LOCK) 10ML VIAL/SYR IV SCH ×3 (06:20→22:00)
[2021-10-26] MEDS: CLOPIDOGREL BISULFATE 75 MG TAB PO SCH (08:37)
[2021-10-26] MEDS: ASPirin 81 mg TAB PO SCH (08:38)
[2021-10-26] MEDS: ZINC SULFATE 220mg CAP or TAB PO SCH (08:38)
[2021-10-26] MEDS: PANTOPRAZOLE 40 MG/10 ML VIAL INJ IV SCH (08:38)
[2021-10-26] MEDS: ASCORBIC ACID 1,000 MG TAB PO SCH (08:38)
[2021-10-26] MEDS: CHOLECALCIFEROL (VITD3) 2,000 UNIT CAP/TAB PO SCH (08:38)
[2021-10-26] MEDS: DexAMETHasone SOD PHOS 10MG/1ML VIAL INJ IV SCH (08:38)
[2021-10-26] MEDS: INSULIN LANTUS (GLARGINE) 1 /0.01ml (100units/ml) SC SCH (09:44)
[2021-10-26] MEDS: MEROPENEM 500MG IVPB 50 ML IV SCH ×2 (09:49→22:00)
[2021-10-26] MEDS: NOREPINEPHRINE BITARTRATE 32 MG in SODIUM CHL 0.9% 218 ML IV SCH ×2 (10:00→18:45)
[2021-10-26] MEDS: BUMETANIDE INJECTION 12.5 MG in GIVE UN-DILUTED 0 ML IV SCH (10:45)
[2021-10-26] MEDS: SOD CHL 0.45% 1,000 ML IV SCH (13:40)
[2021-10-26] MEDS ORDERED: VANCOMYCIN PER PHARMACY 0 MG IV SCH (14:45)
[2021-10-26] MEDS ORDERED: FLUCONAZOLE 200MG/100ML 100 ML IV ONE (15:00)
[2021-10-26 15:46] LABS: Eosinophils # (auto) 0 10 ^3/uL (0-0.8); Lymphocytes # (auto) 0.4 10 ^3/uL (0.4-5.4); Monocytes # (auto) 0.2 10 ^3/uL (0-1.3)
[2021-10-26 15:48] LABS: Basophils # (auto) 0.1 10 ^3/uL (0-0.2); Basophils % (auto) 0.4 % (0.0-2.0); Eosinophils % (auto) 0.1 % (0.0-7.0); Hematocrit 38.8 % (41.0-53.0); Hemoglobin 12.6 g/dL (13.5-17.5); Mean Corpuscular Hemoglobin 32.4 pg (28.0-32.0); Mean Corpuscular Hgb Conc. 32.5 g/dL (32.0-36.0); Mean Corpuscular Volume 99.7 fL (80.0-100.0); Neutrophils # (auto) 19.5 10 ^3/uL (1.6-8.6); Neutrophils % (auto) 96.5 % (37.0-80.0); Red Blood Cells 3.89 10^6/uL (4.5-5.90); Red Cell Distribution Width 14.9 % (11.8-14.3); White Blood Cell 20.2 10^3/uL (4.4-10.8)
[2021-10-26] MEDS ORDERED: VANCOMYCIN 1GM/250ML 250 ML IV ONE (17:00)
[2021-10-26] MEDS: PROPOFOL 100 ML IV SCH (17:45)
[2021-10-26] MEDS: PHENYLEPHRINE IV 250 ML IV SCH (18:30)
[2021-10-27] VITALS (30 sets, daily range): BP systolic 104–148; BP diastolic 59–80
[2021-10-27] MEDS: ACCU-CHEK COMFORT CURVE STRIP VI SCH ×4 (00:16→17:45)
[2021-10-27] MEDS: InsuLIN REG 1unit/0.01ml Soln (100units/ml) SC SCH ×4 (00:18→18:00)
[2021-10-27] MEDS: SOD CHL 0.45% 1,000 ML IV SCH ×5 (00:25→19:24)
[2021-10-27] MEDS: PHENYLEPHRINE IV 250 ML IV SCH ×3 (02:50→19:30)
[2021-10-27] MEDS: MIDAZOLAM DRIP 50 mg/50mL 50 ML IV SCH ×4 (03:25→22:06)
[2021-10-27 04:38] LABS: Basophils # (auto) 0 10 ^3/uL (0-0.2); Basophils % (auto) 0.2 % (0.0-2.0); Eosinophils # (auto) 0 10 ^3/uL (0-0.8); Hematocrit 39.2 % (41.0-53.0); Hemoglobin 12.4 g/dL (13.5-17.5); Lymphocytes # (auto) 0.4 10 ^3/uL (0.4-5.4); Lymphocytes % (auto) 2.3 % (10.0-50.0); Mean Corpuscular Hemoglobin 31.6 pg (28.0-32.0); Mean Corpuscular Hgb Conc. 31.7 g/dL (32.0-36.0); Mean Corpuscular Volume 99.7 fL (80.0-100.0); Monocytes # (auto) 0.6 10 ^3/uL (0-1.3); Neutrophils # (auto) 18.4 10 ^3/uL (1.6-8.6); Neutrophils % (auto) 94.5 % (37.0-80.0); Nucleated Red Blood Cells % 0.1 %; Red Blood Cells 3.93 10^6/uL (4.5-5.90); White Blood Cell 19.5 10^3/uL (4.4-10.8)
[2021-10-27 05:08] LABS: Albumin 1.7 g/dL (3.4-5.0); Calcium 8.4 mg/dL (8.5-10.1); Magnesium 2.8 mg/dL (1.6-2.6)
[2021-10-27] MEDS: SODIUM ZIRCONIUM CYCL 10 GM PAK GT SCH ×3 (05:12→22:00)
[2021-10-27 05:18] LABS: BUN/Creatinine Ratio 36.5; Bilirubin, Total 3.9 mg/dL (0.2-1.0); Total Protein 6.4 g/dL (6.4-8.2)
[2021-10-27 05:27] LABS: Potassium 5.7 mmol/L (3.5-5.1)
[2021-10-27] MEDS: SODIUM CHLOR 0.9% PF (SALINE LOCK) 10ML VIAL/SYR IV SCH ×3 (05:54→22:00)
[2021-10-27] MEDS: fentaNYL Drip 2500mCg/250mlNS 250 ML IV SCH ×2 (08:01→22:00)
[2021-10-27] MEDS: MEROPENEM 500MG IVPB 50 ML IV SCH ×2 (09:07→22:00)
[2021-10-27] MEDS: DexAMETHasone SOD PHOS 10MG/1ML VIAL INJ IV SCH (10:16)
[2021-10-27] MEDS: PANTOPRAZOLE 40 MG/10 ML VIAL INJ IV SCH (10:17)
[2021-10-27] MEDS: ZINC SULFATE 220mg CAP or TAB PO SCH (10:24)
[2021-10-27] MEDS: CLOPIDOGREL BISULFATE 75 MG TAB PO SCH (10:24)
[2021-10-27] MEDS: ASPirin 81 mg TAB PO SCH (10:24)
[2021-10-27] MEDS: CHOLECALCIFEROL (VITD3) 2,000 UNIT CAP/TAB PO SCH (10:25)
[2021-10-27] MEDS: ASCORBIC ACID 1,000 MG TAB PO SCH (10:25)
[2021-10-27] MEDS: INSULIN LANTUS (GLARGINE) 1 /0.01ml (100units/ml) SC SCH (10:35)
[2021-10-27] MEDS: BUMETANIDE INJECTION 12.5 MG in GIVE UN-DILUTED 0 ML IV SCH (10:45)
[2021-10-27] MEDS: FLUCONAZOLE 200MG/100ML 100 ML IV SCH (12:53)
[2021-10-27] MEDS: NOREPINEPHRINE BITARTRATE 32 MG in SODIUM CHL 0.9% 218 ML IV SCH (14:10)
[2021-10-27] MEDS ORDERED: VANCOMYCIN 1GM/250ML 250 ML IV ONE (17:00)
[2021-10-27] MEDS: PROPOFOL 100 ML IV SCH (17:33)
[2021-10-27 18:58] LABS: BUN/Creatinine Ratio 38.1; Calcium 8.3 mg/dL (8.5-10.1)
[2021-10-27 19:37] LABS: Potassium 5.8 mmol/L (3.5-5.1)
[2021-10-28] VITALS (55 sets, daily range): BP systolic 89–148; BP diastolic 54–78
[2021-10-28] MEDS: MIDAZOLAM DRIP 50 mg/50mL 50 ML IV SCH ×4 (02:04→16:53)
[2021-10-28] MEDS: PHENYLEPHRINE IV 250 ML IV SCH ×3 (03:50→22:49)
[2021-10-28 04:26] LABS: Basophils # (auto) 0.1 10 ^3/uL (0-0.2); Basophils % (auto) 0.6 % (0.0-2.0); Eosinophils # (auto) 0 10 ^3/uL (0-0.8); Eosinophils % (auto) 0.1 % (0.0-7.0); Hematocrit 34.8 % (41.0-53.0); Lymphocytes # (auto) 0.4 10 ^3/uL (0.4-5.4); Lymphocytes % (auto) 2.7 % (10.0-50.0); Mean Corpuscular Hemoglobin 31.7 pg (28.0-32.0); Mean Corpuscular Hgb Conc. 31.6 g/dL (32.0-36.0); Mean Corpuscular Volume 100.1 fL (80.0-100.0); Monocytes # (auto) 0.6 10 ^3/uL (0-1.3); Monocytes % (auto) 4.3 % (0.0-12.0); Neutrophils # (auto) 12.6 10 ^3/uL (1.6-8.6); Neutrophils % (auto) 92.3 % (37.0-80.0); Nucleated Red Blood Cells % 0.1 %; Red Blood Cells 3.48 10^6/uL (4.5-5.90); White Blood Cell 13.7 10^3/uL (4.4-10.8)
[2021-10-28 04:33] LABS: BUN/Creatinine Ratio 41.1; Calcium 8.2 mg/dL (8.5-10.1); Potassium 5.5 mmol/L (3.5-5.1)
[2021-10-28] MEDS: SODIUM ZIRCONIUM CYCL 10 GM PAK GT SCH ×3 (05:36→22:00)
[2021-10-28] MEDS: SODIUM CHLOR 0.9% PF (SALINE LOCK) 10ML VIAL/SYR IV SCH ×3 (05:39→22:00)
[2021-10-28] MEDS: SOD CHL 0.45% 1,000 ML IV SCH ×3 (05:39→22:49)
[2021-10-28] MEDS: ACCU-CHEK COMFORT CURVE STRIP VI SCH ×3 (06:06→12:00)
[2021-10-28] MEDS: InsuLIN REG 1unit/0.01ml Soln (100units/ml) SC SCH ×5 (06:07→23:28)
[2021-10-28] MEDS: fentaNYL Drip 2500mCg/250mlNS 250 ML IV SCH ×2 (09:43→23:36)
[2021-10-28] MEDS: FLUCONAZOLE 200MG/100ML 100 ML IV SCH (10:00)
[2021-10-28] MEDS: CLOPIDOGREL BISULFATE 75 MG TAB PO SCH (10:00)
[2021-10-28] MEDS: ZINC SULFATE 220mg CAP or TAB PO SCH (10:00)
[2021-10-28] MEDS: ASCORBIC ACID 1,000 MG TAB PO SCH (10:00)
[2021-10-28] MEDS: CHOLECALCIFEROL (VITD3) 2,000 UNIT CAP/TAB PO SCH (10:00)
[2021-10-28] MEDS: DexAMETHasone SOD PHOS 10MG/1ML VIAL INJ IV SCH (10:00)
[2021-10-28] MEDS: ASPirin 81 mg TAB PO SCH (10:00)
[2021-10-28] MEDS: INSULIN LANTUS (GLARGINE) 1 /0.01ml (100units/ml) SC SCH (10:00)
[2021-10-28] MEDS: PANTOPRAZOLE 40 MG/10 ML VIAL INJ IV SCH (10:00)
[2021-10-28] MEDS ORDERED: VANCOMYCIN 1GM/250ML 250 ML IV ONE (15:00)
[2021-10-28] MEDS: MEROPENEM 500MG IVPB 50 ML IV SCH ×2 (22:00)
[2021-10-29] VITALS (18 sets, daily range): BP systolic 108–140; BP diastolic 49–78
[2021-10-29] MEDS: MIDAZOLAM DRIP 50 mg/50mL 50 ML IV SCH ×5 (01:10→18:45)
[2021-10-29] MEDS: SODIUM CHLOR 0.9% PF (SALINE LOCK) 10ML VIAL/SYR IV SCH ×3 (05:30→22:00)
[2021-10-29] MEDS: SODIUM ZIRCONIUM CYCL 10 GM PAK GT SCH ×3 (05:30→22:13)
[2021-10-29] MEDS: InsuLIN REG 1unit/0.01ml Soln (100units/ml) SC SCH ×3 (05:31→18:22)
[2021-10-29] MEDS: ACCU-CHEK COMFORT CURVE STRIP VI SCH ×4 (05:33→18:14)
[2021-10-29 05:51] LABS: Basophils # (auto) 0 10 ^3/uL (0-0.2); Basophils % (auto) 0.4 % (0.0-2.0); Eosinophils # (auto) 0 10 ^3/uL (0-0.8); Hemoglobin 10.6 g/dL (13.5-17.5); Lymphocytes # (auto) 0.4 10 ^3/uL (0.4-5.4); Lymphocytes % (auto) 3.8 % (10.0-50.0); Mean Corpuscular Hgb Conc. 33.2 g/dL (32.0-36.0); Mean Corpuscular Volume 99.4 fL (80.0-100.0); Monocytes # (auto) 0.6 10 ^3/uL (0-1.3); Monocytes % (auto) 5.6 % (0.0-12.0); Neutrophils # (auto) 9.8 10 ^3/uL (1.6-8.6); Neutrophils % (auto) 90.2 % (37.0-80.0); Red Blood Cells 3.22 10^6/uL (4.5-5.90); Red Cell Distribution Width 14.9 % (11.8-14.3); White Blood Cell 10.9 10^3/uL (4.4-10.8)
[2021-10-29 06:20] LABS: Calcium 7.9 mg/dL (8.5-10.1)
[2021-10-29 06:31] LABS: Potassium 5.6 mmol/L (3.5-5.1)
[2021-10-29] MEDS: SOD CHL 0.45% 1,000 ML IV SCH ×5 (08:20→21:07)
[2021-10-29] MEDS: INSULIN LANTUS (GLARGINE) 1 /0.01ml (100units/ml) SC SCH (10:00)
[2021-10-29] MEDS: MEROPENEM 500MG IVPB 50 ML IV SCH ×2 (10:17→22:15)
[2021-10-29] MEDS: DexAMETHasone SOD PHOS 10MG/1ML VIAL INJ IV SCH (10:17)
[2021-10-29] MEDS: ASCORBIC ACID 1,000 MG TAB PO SCH (10:17)
[2021-10-29] MEDS: FLUCONAZOLE 200MG/100ML 100 ML IV SCH (10:17)
[2021-10-29] MEDS: CHOLECALCIFEROL (VITD3) 2,000 UNIT CAP/TAB PO SCH (10:17)
[2021-10-29] MEDS: CLOPIDOGREL BISULFATE 75 MG TAB PO SCH (10:17)
[2021-10-29] MEDS: ASPirin 81 mg TAB PO SCH (10:17)
[2021-10-29] MEDS: ZINC SULFATE 220mg CAP or TAB PO SCH (10:17)
[2021-10-29] MEDS: PANTOPRAZOLE 40 MG/10 ML VIAL INJ IV SCH (10:17)
[2021-10-29] MEDS: fentaNYL Drip 2500mCg/250mlNS 250 ML IV SCH (10:39)
[2021-10-29] MEDS: PROPOFOL 100 ML IV SCH ×2 (12:58→17:45)
[2021-10-29] MEDS: NOREPINEPHRINE BITARTRATE 32 MG in SODIUM CHL 0.9% 218 ML IV SCH ×2 (12:59→18:45)
[2021-10-29] MEDS: PHENYLEPHRINE IV 250 ML IV SCH ×3 (13:10→21:30)
[2021-10-29] MEDS: VANCOMYCIN 1GM/250ML 250 ML IV SCH (14:45)
[2021-10-30] VITALS (24 sets, daily range): BP systolic 96–125; BP diastolic 49–70
[2021-10-30] MEDS: InsuLIN REG 1unit/0.01ml Soln (100units/ml) SC SCH ×4 (00:35→18:00)
[2021-10-30] MEDS: MIDAZOLAM DRIP 50 mg/50mL 50 ML IV SCH ×4 (01:58→16:08)
[2021-10-30] MEDS: fentaNYL Drip 2500mCg/250mlNS 250 ML IV SCH ×2 (02:02→13:30)
[2021-10-30] MEDS: SODIUM ZIRCONIUM CYCL 10 GM PAK GT SCH ×3 (05:47→22:06)
[2021-10-30] MEDS: PHENYLEPHRINE IV 250 ML IV SCH ×2 (05:50→14:10)
[2021-10-30] MEDS: SODIUM CHLOR 0.9% PF (SALINE LOCK) 10ML VIAL/SYR IV SCH ×3 (06:00→22:00)
[2021-10-30] MEDS: ACCU-CHEK COMFORT CURVE STRIP VI SCH ×4 (06:00→18:19)
[2021-10-30] MEDS: FLUCONAZOLE 200MG/100ML 100 ML IV SCH (09:46)
[2021-10-30] MEDS: DexAMETHasone SOD PHOS 10MG/1ML VIAL INJ IV SCH (09:46)
[2021-10-30] MEDS: MEROPENEM 500MG IVPB 50 ML IV SCH ×2 (09:46→22:11)
[2021-10-30] MEDS: PANTOPRAZOLE 40 MG/10 ML VIAL INJ IV SCH (09:46)
[2021-10-30] MEDS: CHOLECALCIFEROL (VITD3) 2,000 UNIT CAP/TAB PO SCH (09:47)
[2021-10-30] MEDS: ASPirin 81 mg TAB PO SCH (09:47)
[2021-10-30] MEDS: ASCORBIC ACID 1,000 MG TAB PO SCH (09:47)
[2021-10-30] MEDS: ZINC SULFATE 220mg CAP or TAB PO SCH (09:47)
[2021-10-30] MEDS: CLOPIDOGREL BISULFATE 75 MG TAB PO SCH (09:47)
[2021-10-30] MEDS: INSULIN LANTUS (GLARGINE) 1 /0.01ml (100units/ml) SC SCH (09:52)
[2021-10-30] MEDS: Glucerna 1.2 Cal 1Liter BOTTLE GT SCH (10:00)
[2021-10-30] MEDS ORDERED: FUROSEMIDE 20 MG/2 ML VIAL IV ONE (12:00)
[2021-10-30] MEDS: SOD CHL 0.45% 1,000 ML IV SCH ×2 (12:29→22:00)
[2021-10-30] MEDS: VANCOMYCIN 1GM/250ML 250 ML IV SCH (15:00)
[2021-10-30 15:01] LABS: Basophils # (auto) 0 10 ^3/uL (0-0.2); Basophils % (auto) 0.1 % (0.0-2.0); Eosinophils # (auto) 0 10 ^3/uL (0-0.8); Eosinophils % (auto) 0.1 % (0.0-7.0); Hematocrit 32.7 % (41.0-53.0); Hemoglobin 10.7 g/dL (13.5-17.5); Lymphocytes # (auto) 0.3 10 ^3/uL (0.4-5.4); Lymphocytes % (auto) 3.4 % (10.0-50.0); Mean Corpuscular Hemoglobin 32.4 pg (28.0-32.0); Mean Corpuscular Hgb Conc. 32.6 g/dL (32.0-36.0); Mean Corpuscular Volume 99.4 fL (80.0-100.0); Monocytes # (auto) 0.3 10 ^3/uL (0-1.3); Monocytes % (auto) 3.1 % (0.0-12.0); Neutrophils % (auto) 93.3 % (37.0-80.0); Nucleated Red Blood Cells % 0.1 %; Red Blood Cells 3.29 10^6/uL (4.5-5.90); Red Cell Distribution Width 14.6 % (11.8-14.3); White Blood Cell 8.6 10^3/uL (4.4-10.8)
[2021-10-30 15:12] LABS: BUN/Creatinine Ratio 45.6; Calcium 7.8 mg/dL (8.5-10.1); Potassium 5.3 mmol/L (3.5-5.1)
[2021-10-30] MEDS: PROPOFOL 100 ML IV SCH (18:00)
[2021-10-30] MEDS: NOREPINEPHRINE BITARTRATE 32 MG in SODIUM CHL 0.9% 218 ML IV SCH (18:45)
[2021-10-30 21:56] LABS: BUN/Creatinine Ratio 44.8; Potassium 5.2 mmol/L (3.5-5.1)
[2021-10-31] VITALS (71 sets, daily range): BP systolic 91–142; BP diastolic 52–77
[2021-10-31] MEDS: InsuLIN REG 1unit/0.01ml Soln (100units/ml) SC SCH ×5 (00:36→18:11)
[2021-10-31] MEDS: SOD CHL 0.45% 1,000 ML IV SCH ×5 (02:06→13:47)
[2021-10-31] MEDS: MIDAZOLAM DRIP 50 mg/50mL 50 ML IV SCH (03:13)
[2021-10-31] MEDS: fentaNYL Drip 2500mCg/250mlNS 250 ML IV SCH (03:16)
[2021-10-31 04:16] LABS: Basophils # (auto) 0.1 10 ^3/uL (0-0.2); Basophils % (auto) 0.8 % (0.0-2.0); Eosinophils # (auto) 0 10 ^3/uL (0-0.8); Eosinophils % (auto) 0.1 % (0.0-7.0); Hematocrit 34.5 % (41.0-53.0); Hemoglobin 11.2 g/dL (13.5-17.5); Lymphocytes # (auto) 0.6 10 ^3/uL (0.4-5.4); Lymphocytes % (auto) 4.8 % (10.0-50.0); Mean Corpuscular Hemoglobin 31.8 pg (28.0-32.0); Mean Corpuscular Hgb Conc. 32.4 g/dL (32.0-36.0); Mean Corpuscular Volume 98.4 fL (80.0-100.0); Monocytes # (auto) 0.8 10 ^3/uL (0-1.3); Monocytes % (auto) 5.9 % (0.0-12.0); Neutrophils # (auto) 11.5 10 ^3/uL (1.6-8.6); Neutrophils % (auto) 88.4 % (37.0-80.0); Nucleated Red Blood Cells % 0.2 %; Red Blood Cells 3.51 10^6/uL (4.5-5.90); Red Cell Distribution Width 14.6 % (11.8-14.3)
[2021-10-31 04:21] LABS: INR 1.22 (0.9-1.15)
[2021-10-31 04:25] LABS: Potassium 5.2 mmol/L (3.5-5.1)
[2021-10-31 04:35] LABS: Albumin 1.7 g/dL (3.4-5.0); BUN/Creatinine Ratio 47.1; Bilirubin, Total 1.4 mg/dL (0.2-1.0); Total Protein 5.6 g/dL (6.4-8.2)
[2021-10-31] MEDS: SODIUM ZIRCONIUM CYCL 10 GM PAK GT SCH ×3 (06:00→22:00)
[2021-10-31] MEDS: ACCU-CHEK COMFORT CURVE STRIP VI SCH ×4 (06:00→17:57)
[2021-10-31] MEDS: SODIUM CHLOR 0.9% PF (SALINE LOCK) 10ML VIAL/SYR IV SCH ×3 (06:00→22:00)
[2021-10-31] MEDS: ZINC SULFATE 220mg CAP or TAB PO SCH (10:00)
[2021-10-31] MEDS: DexAMETHasone SOD PHOS 10MG/1ML VIAL INJ IV SCH (10:12)
[2021-10-31] MEDS: FLUCONAZOLE 200MG/100ML 100 ML IV SCH (10:12)
[2021-10-31] MEDS: PANTOPRAZOLE 40 MG/10 ML VIAL INJ IV SCH (10:13)
[2021-10-31] MEDS: ASPirin 81 mg TAB PO SCH (10:13)
[2021-10-31] MEDS: CHOLECALCIFEROL (VITD3) 2,000 UNIT CAP/TAB PO SCH (10:14)
[2021-10-31] MEDS: ASCORBIC ACID 1,000 MG TAB PO SCH (10:17)
[2021-10-31] MEDS: MEROPENEM 500MG IVPB 50 ML IV SCH ×2 (11:32→22:00)
[2021-10-31] MEDS: INSULIN LANTUS (GLARGINE) 1 /0.01ml (100units/ml) SC SCH (12:04)
[2021-10-31] MEDS: FUROSEMIDE 20 MG/2 ML VIAL IV ONE ×2 (12:07→14:24)
[2021-10-31] MEDS ORDERED: EPINEPHrine HCL 1 MG/10 ML SYRG IV ONE (13:05)
[2021-10-31] MEDS ORDERED: ATROPINE SULF 1 MG/10ml SYR IV ONE (13:05)
[2021-10-31] MEDS: VANCOMYCIN 1GM/250ML 250 ML IV SCH (17:21)
[2021-10-31] MEDS: NOREPINEPHRINE BITARTRATE 32 MG in SODIUM CHL 0.9% 218 ML IV SCH (19:27)
[2021-10-31] MEDS: Glucerna 1.2 Cal 1Liter BOTTLE GT SCH (20:00)
[2021-11-01] VITALS (33 sets, daily range): BP systolic 88–174; BP diastolic 58–91
[2021-11-01] MEDS: fentaNYL Drip 2500mCg/250mlNS 250 ML IV SCH (03:00)
[2021-11-01] MEDS: MIDAZOLAM DRIP 50 mg/50mL 50 ML IV SCH (04:00)
[2021-11-01] MEDS: SOD CHL 0.45% 1,000 ML IV SCH ×2 (04:10→16:06)
[2021-11-01] MEDS: InsuLIN REG 1unit/0.01ml Soln (100units/ml) SC SCH ×4 (06:00→18:20)
[2021-11-01] MEDS: SODIUM ZIRCONIUM CYCL 10 GM PAK GT SCH ×3 (06:00→22:00)
[2021-11-01] MEDS: ACCU-CHEK COMFORT CURVE STRIP VI SCH ×4 (06:00→18:21)
[2021-11-01] MEDS: SODIUM CHLOR 0.9% PF (SALINE LOCK) 10ML VIAL/SYR IV SCH ×3 (06:00→22:10)
[2021-11-01 07:09] LABS: Basophils # (auto) 0.1 10 ^3/uL (0-0.2); Basophils % (auto) 0.7 % (0.0-2.0); Eosinophils # (auto) 0.1 10 ^3/uL (0-0.8); Eosinophils % (auto) 1.3 % (0.0-7.0); Hematocrit 32.2 % (41.0-53.0); Hemoglobin 10.5 g/dL (13.5-17.5); Lymphocytes # (auto) 0.8 10 ^3/uL (0.4-5.4); Lymphocytes % (auto) 7.1 % (10.0-50.0); Mean Corpuscular Hemoglobin 32.3 pg (28.0-32.0); Mean Corpuscular Hgb Conc. 32.5 g/dL (32.0-36.0); Mean Corpuscular Volume 99.3 fL (80.0-100.0); Monocytes # (auto) 0.6 10 ^3/uL (0-1.3); Monocytes % (auto) 5.4 % (0.0-12.0); Neutrophils % (auto) 85.5 % (37.0-80.0); Nucleated Red Blood Cells % 0.1 %; Red Blood Cells 3.24 10^6/uL (4.5-5.90); Red Cell Distribution Width 14.7 % (11.8-14.3); White Blood Cell 10.5 10^3/uL (4.4-10.8)
[2021-11-01 07:20] LABS: Potassium 4.5 mmol/L (3.5-5.1)
[2021-11-01 07:27] LABS: Albumin 1.5 g/dL (3.4-5.0); BUN/Creatinine Ratio 46.9; Bilirubin, Total 1.1 mg/dL (0.2-1.0); Calcium 7.6 mg/dL (8.5-10.1); Magnesium 2.7 mg/dL (1.6-2.6); Total Protein 4.9 g/dL (6.4-8.2)
[2021-11-01] MEDS ORDERED: ATROPINE SULF 1 MG/10ml SYR IV ONE (07:30)
[2021-11-01] MEDS: ASCORBIC ACID 1,000 MG TAB PO SCH (09:18)
[2021-11-01] MEDS: ZINC SULFATE 220mg CAP or TAB PO SCH (09:18)
[2021-11-01] MEDS: PANTOPRAZOLE 40 MG/10 ML VIAL INJ IV SCH (09:18)
[2021-11-01] MEDS: ASPirin 81 mg TAB PO SCH (09:18)
[2021-11-01] MEDS: CHOLECALCIFEROL (VITD3) 2,000 UNIT CAP/TAB PO SCH (09:18)
[2021-11-01] MEDS: FLUCONAZOLE 200MG/100ML 100 ML IV SCH (09:18)
[2021-11-01] MEDS: MEROPENEM 500MG IVPB 50 ML IV SCH ×2 (09:48→21:18)
[2021-11-01] MEDS: DexAMETHasone SOD PHOS 10MG/1ML VIAL INJ IV SCH (09:48)
[2021-11-01] MEDS: INSULIN LANTUS (GLARGINE) 1 /0.01ml (100units/ml) SC SCH (10:00)
[2021-11-01] MEDS ORDERED: ENOXAPARIN SOD 40 MG/0.4 ML SYRINGE SC SCH (10:00)
[2021-11-01] MEDS: VANCOMYCIN 1GM/250ML 250 ML IV SCH (12:00)
[2021-11-01] MEDS: NOREPINEPHRINE BITARTRATE 32 MG in SODIUM CHL 0.9% 218 ML IV SCH (18:45)
[2021-11-01] MEDS: Glucerna 1.2 Cal 1Liter BOTTLE GT SCH (19:17)
[2021-11-01] MEDS: ACETAMINOPHEN 500 MG TAB PO PRN (19:18)
[2021-11-01] MEDS ORDERED: FUROSEMIDE 20 MG/2 ML VIAL IV ONE (23:00)
[2021-11-02] VITALS (57 sets, daily range): BP systolic 85–160; BP diastolic 45–95
[2021-11-02] MEDS: ACCU-CHEK COMFORT CURVE STRIP VI SCH ×4 (00:03→17:28)
[2021-11-02] MEDS: InsuLIN REG 1unit/0.01ml Soln (100units/ml) SC SCH ×4 (00:05→17:19)
[2021-11-02] MEDS: MIDAZOLAM DRIP 50 mg/50mL 50 ML IV SCH ×4 (02:00→20:00)
[2021-11-02] MEDS: VANCOMYCIN 1GM/250ML 250 ML IV SCH (05:15)
[2021-11-02] MEDS: SODIUM CHLOR 0.9% PF (SALINE LOCK) 10ML VIAL/SYR IV SCH ×3 (05:16→22:00)
[2021-11-02 07:27] LABS: Basophils # (auto) 0 10 ^3/uL (0-0.2); Basophils % (auto) 0.3 % (0.0-2.0); Eosinophils # (auto) 0 10 ^3/uL (0-0.8); Eosinophils % (auto) 0.1 % (0.0-7.0); Hematocrit 35.9 % (41.0-53.0); Hemoglobin 11.9 g/dL (13.5-17.5); Lymphocytes # (auto) 0.5 10 ^3/uL (0.4-5.4); Mean Corpuscular Hemoglobin 32.3 pg (28.0-32.0); Mean Corpuscular Volume 97.8 fL (80.0-100.0); Monocytes # (auto) 0.4 10 ^3/uL (0-1.3); Monocytes % (auto) 3.5 % (0.0-12.0); Neutrophils # (auto) 11.7 10 ^3/uL (1.6-8.6); Neutrophils % (auto) 92.1 % (37.0-80.0); Nucleated Red Blood Cells % 0.1 %; Red Blood Cells 3.67 10^6/uL (4.5-5.90); White Blood Cell 12.7 10^3/uL (4.4-10.8)
[2021-11-02 07:43] LABS: Potassium 4.6 mmol/L (3.5-5.1)
[2021-11-02 07:47] LABS: Lactic Acid w/Reflex 2.8 mmol/L (0.4-2.0)
[2021-11-02 08:05] LABS: Albumin 1.8 g/dL (3.4-5.0); BUN/Creatinine Ratio 40.9; Calcium 8.2 mg/dL (8.5-10.1)
[2021-11-02 08:10] LABS: Bilirubin, Total 1.4 mg/dL (0.2-1.0)
[2021-11-02] MEDS: CHOLECALCIFEROL (VITD3) 2,000 UNIT CAP/TAB PO SCH (10:00)
[2021-11-02] MEDS: INSULIN LANTUS (GLARGINE) 1 /0.01ml (100units/ml) SC SCH (10:00)
[2021-11-02] MEDS: ZINC SULFATE 220mg CAP or TAB PO SCH (10:00)
[2021-11-02] MEDS: DexAMETHasone SOD PHOS 10MG/1ML VIAL INJ IV SCH (10:22)
[2021-11-02] MEDS: ASPirin 81 mg TAB PO SCH (10:22)
[2021-11-02] MEDS: ASCORBIC ACID 1,000 MG TAB PO SCH (10:22)
[2021-11-02] MEDS: PANTOPRAZOLE 40 MG/10 ML VIAL INJ IV SCH (10:22)
[2021-11-02] MEDS: FLUCONAZOLE 200MG/100ML 100 ML IV SCH (10:23)
[2021-11-02] MEDS: MEROPENEM 500MG IVPB 50 ML IV SCH (10:23)
[2021-11-02] MEDS: SODIUM ZIRCONIUM CYCL 10 GM PAK GT SCH ×3 (14:00→22:00)
[2021-11-02] MEDS: NOREPINEPHRINE BITARTRATE 32 MG in SODIUM CHL 0.9% 218 ML IV SCH (18:45)
[2021-11-02] MEDS: SOD CHL 0.45% 1,000 ML IV SCH (19:00)
[2021-11-02] MEDS: fentaNYL Drip 2500mCg/250mlNS 250 ML IV SCH (20:00)
[2021-11-02] MEDS: MEROPENEM 1GM IVPB 100 ML IV SCH (22:00)
[2021-11-03] VITALS (56 sets, daily range): BP systolic 76–141; BP diastolic 41–95
[2021-11-03 04:53] LABS: Hemoglobin 12.7 g/dL (13.5-17.5); Mean Corpuscular Hgb Conc. 35.2 g/dL (32.0-36.0); Mean Corpuscular Volume 96.5 fL (80.0-100.0); Red Blood Cells 3.73 10^6/uL (4.5-5.90); Red Cell Distribution Width 17.1 % (11.8-14.3); White Blood Cell 13.5 10^3/uL (4.4-10.8)
[2021-11-03 05:50] LABS: Basophils % (manual) 0 (0.0-2.0); Blast Cells 0; Eosinophils % (manual) 0 (0-7); Metamyelocytes % 0; Myelocytes % 0; Promyelocytes % 0; Reactive Lymphocytes 0
[2021-11-03] MEDS: SOD CHL 0.45% 1,000 ML IV SCH ×3 (06:00→10:41)
[2021-11-03] MEDS: ACCU-CHEK COMFORT CURVE STRIP VI SCH ×4 (06:00→17:30)
[2021-11-03] MEDS: InsuLIN REG 1unit/0.01ml Soln (100units/ml) SC SCH ×4 (06:00→17:30)
[2021-11-03] MEDS: SODIUM ZIRCONIUM CYCL 10 GM PAK GT SCH ×3 (06:00→22:00)
[2021-11-03] MEDS: SODIUM CHLOR 0.9% PF (SALINE LOCK) 10ML VIAL/SYR IV SCH ×3 (06:00→22:00)
[2021-11-03] MEDS: MEROPENEM 1GM IVPB 100 ML IV SCH ×3 (06:00→22:00)
[2021-11-03] MEDS: MIDAZOLAM DRIP 50 mg/50mL 50 ML IV SCH ×3 (09:40→18:30)
[2021-11-03] MEDS: ASPirin 81 mg TAB PO SCH (10:00)
[2021-11-03] MEDS: FLUCONAZOLE 200MG/100ML 100 ML IV SCH (10:00)
[2021-11-03] MEDS: INSULIN LANTUS (GLARGINE) 1 /0.01ml (100units/ml) SC SCH (10:00)
[2021-11-03] MEDS: PANTOPRAZOLE 40 MG/10 ML VIAL INJ IV SCH (10:41)
[2021-11-03] MEDS: DexAMETHasone SOD PHOS 10MG/1ML VIAL INJ IV SCH (10:41)
[2021-11-03] MEDS: CHOLECALCIFEROL (VITD3) 2,000 UNIT CAP/TAB PO SCH (10:42)
[2021-11-03] MEDS: ZINC SULFATE 220mg CAP or TAB PO SCH (10:42)
[2021-11-03] MEDS: ASCORBIC ACID 1,000 MG TAB PO SCH (10:43)
[2021-11-03 10:46] LABS: Calcium 6.3 mg/dL (8.5-10.1)
[2021-11-03 10:48] LABS: BUN/Creatinine Ratio 48.9
[2021-11-03] MEDS: PROPOFOL 100 ML IV SCH (13:10)
[2021-11-03] MEDS: fentaNYL Drip 2500mCg/250mlNS 250 ML IV SCH (13:21)
[2021-11-03] MEDS: NOREPINEPHRINE BITARTRATE 32 MG in SODIUM CHL 0.9% 218 ML IV SCH (14:19)
[2021-11-03 14:34] LABS: Band Neutrophils % (manual) 19; Lymphocytes % (manual) 12 (10.0-50.0); Monocytes % (manual) 6 (0-12)
[2021-11-03] MEDS: VANCOMYCIN 1GM/250ML 250 ML IV SCH ×2 (17:00)
[2021-11-03] MEDS: Glucerna 1.2 Cal 1Liter BOTTLE GT SCH (19:00)
[2021-11-04] VITALS (57 sets, daily range): BP systolic 98–158; BP diastolic 51–124
[2021-11-04 05:10] LABS: Calcium 7.8 mg/dL (8.5-10.1); Potassium 4.3 mmol/L (3.5-5.1)
[2021-11-04 05:13] LABS: BUN/Creatinine Ratio 45.8
[2021-11-04] MEDS: MIDAZOLAM DRIP 50 mg/50mL 50 ML IV SCH ×2 (05:22→12:00)
[2021-11-04] MEDS: PROPOFOL 100 ML IV SCH ×2 (05:22→12:00)
[2021-11-04] MEDS: InsuLIN REG 1unit/0.01ml Soln (100units/ml) SC SCH ×4 (06:00→17:46)
[2021-11-04] MEDS: ACCU-CHEK COMFORT CURVE STRIP VI SCH ×4 (06:00→17:25)
[2021-11-04] MEDS: SODIUM CHLOR 0.9% PF (SALINE LOCK) 10ML VIAL/SYR IV SCH ×3 (06:00→22:00)
[2021-11-04] MEDS: ACETYLCYSTEINE 10 %(100MG/ML) SOL 4ML IN SCH ×3 (06:00→22:28)
[2021-11-04] MEDS: MEROPENEM 1GM IVPB 100 ML IV SCH ×3 (06:00→22:00)
[2021-11-04] MEDS: VANCOMYCIN 1GM/250ML 250 ML IV SCH (08:15)
[2021-11-04] MEDS: FLUCONAZOLE 200MG/100ML 100 ML IV SCH (08:58)
[2021-11-04] MEDS: DexAMETHasone SOD PHOS 10MG/1ML VIAL INJ IV SCH (08:58)
[2021-11-04] MEDS: PANTOPRAZOLE 40 MG/10 ML VIAL INJ IV SCH (08:58)
[2021-11-04] MEDS: ASPirin 81 mg TAB PO SCH (08:59)
[2021-11-04] MEDS: ZINC SULFATE 220mg CAP or TAB PO SCH (08:59)
[2021-11-04] MEDS: ASCORBIC ACID 1,000 MG TAB PO SCH (08:59)
[2021-11-04] MEDS: CHOLECALCIFEROL (VITD3) 2,000 UNIT CAP/TAB PO SCH (08:59)
[2021-11-04] MEDS: INSULIN LANTUS (GLARGINE) 1 /0.01ml (100units/ml) SC SCH (09:00)
[2021-11-04] MEDS: ALBUTEROL SULF 2.5 MG/0.5ML(0.5%) NEB SOLN NEB PRN ×2 (09:53→22:29)
[2021-11-04] MEDS: SOD CHL 0.45% 1,000 ML IV SCH (11:00)
[2021-11-04] MEDS ORDERED: FUROSEMIDE 40 MG/4 ML VIAL IV ONE (12:15)
[2021-11-04] MEDS: fentaNYL Drip 2500mCg/250mlNS 250 ML IV SCH (13:30)
[2021-11-04] MEDS: SODIUM ZIRCONIUM CYCL 10 GM PAK GT SCH ×2 (14:00→22:00)
[2021-11-04] MEDS: NOREPINEPHRINE BITARTRATE 32 MG in SODIUM CHL 0.9% 218 ML IV SCH ×2 (14:46→20:00)
[2021-11-04] MEDS: Glucerna 1.2 Cal 1Liter BOTTLE GT SCH ×2 (18:47→20:00)
[2021-11-04] MEDS ORDERED: NOREPINEPHRINE 8 MG/250ML KIT 250 ML IV ONE (20:05)
[2021-11-05] VITALS (29 sets, daily range): BP systolic 87–166; BP diastolic 51–88
[2021-11-05 04:30] LABS: Basophils # (auto) 0.1 10 ^3/uL (0-0.2); Basophils % (auto) 0.5 % (0.0-2.0); Eosinophils # (auto) 0.2 10 ^3/uL (0-0.8); Eosinophils % (auto) 2.1 % (0.0-7.0); Hematocrit 33.4 % (41.0-53.0); Hemoglobin 10.9 g/dL (13.5-17.5); Lymphocytes # (auto) 0.7 10 ^3/uL (0.4-5.4); Lymphocytes % (auto) 6.1 % (10.0-50.0); Mean Corpuscular Hgb Conc. 32.6 g/dL (32.0-36.0); Mean Corpuscular Volume 98.3 fL (80.0-100.0); Monocytes # (auto) 0.7 10 ^3/uL (0-1.3); Monocytes % (auto) 5.6 % (0.0-12.0); Neutrophils # (auto) 10.3 10 ^3/uL (1.6-8.6); Neutrophils % (auto) 85.7 % (37.0-80.0); Nucleated Red Blood Cells % 0.1 %; Red Blood Cells 3.39 10^6/uL (4.5-5.90); Red Cell Distribution Width 15.5 % (11.8-14.3)
[2021-11-05 04:44] LABS: Magnesium 2.5 mg/dL (1.6-2.6); Potassium 3.6 mmol/L (3.5-5.1)
[2021-11-05 04:46] LABS: BUN/Creatinine Ratio 40.7
[2021-11-05] MEDS: MEROPENEM 1GM IVPB 100 ML IV SCH ×3 (06:00→21:50)
[2021-11-05] MEDS: SODIUM CHLOR 0.9% PF (SALINE LOCK) 10ML VIAL/SYR IV SCH ×3 (06:00→22:00)
[2021-11-05] MEDS: InsuLIN REG 1unit/0.01ml Soln (100units/ml) SC SCH ×4 (06:00→18:19)
[2021-11-05] MEDS: SODIUM ZIRCONIUM CYCL 10 GM PAK GT SCH ×3 (06:00→21:50)
[2021-11-05] MEDS: ACCU-CHEK COMFORT CURVE STRIP VI SCH ×4 (06:00→18:19)
[2021-11-05] MEDS: ACETYLCYSTEINE 10 %(100MG/ML) SOL 4ML IN SCH ×3 (06:00→19:04)
[2021-11-05] MEDS: DexAMETHasone SOD PHOS 10MG/1ML VIAL INJ IV SCH (07:46)
[2021-11-05] MEDS: PANTOPRAZOLE 40 MG/10 ML VIAL INJ IV SCH (07:47)
[2021-11-05] MEDS: FUROSEMIDE 40 MG/4 ML VIAL IV SCH (07:47)
[2021-11-05] MEDS: FLUCONAZOLE 200MG/100ML 100 ML IV SCH (07:47)
[2021-11-05] MEDS: INSULIN LANTUS (GLARGINE) 1 /0.01ml (100units/ml) SC SCH (07:48)
[2021-11-05] MEDS: ASPirin 81 mg TAB PO SCH (07:50)
[2021-11-05] MEDS: CHOLECALCIFEROL (VITD3) 2,000 UNIT CAP/TAB PO SCH (07:50)
[2021-11-05] MEDS: ASCORBIC ACID 1,000 MG TAB PO SCH (07:50)
[2021-11-05] MEDS: ZINC SULFATE 220mg CAP or TAB PO SCH (07:50)
[2021-11-05] MEDS: fentaNYL Drip 2500mCg/250mlNS 250 ML IV SCH (11:02)
[2021-11-05] MEDS: ALBUTEROL SULF 2.5 MG/0.5ML(0.5%) NEB SOLN NEB PRN ×2 (14:26→19:03)
[2021-11-05] MEDS: PROPOFOL 100 ML IV SCH (19:39)
[2021-11-05] MEDS: VANCOMYCIN 1GM/250ML 250 ML IV SCH ×2 (21:48)
[2021-11-06] VITALS (45 sets, daily range): BP systolic 69–162; BP diastolic 37–97
[2021-11-06] MEDS: ACCU-CHEK COMFORT CURVE STRIP VI SCH ×4 (00:22→17:52)
[2021-11-06] MEDS: InsuLIN REG 1unit/0.01ml Soln (100units/ml) SC SCH ×4 (00:23→17:52)
[2021-11-06] MEDS: SODIUM CHLOR 0.9% PF (SALINE LOCK) 10ML VIAL/SYR IV SCH ×3 (06:00→22:04)
[2021-11-06] MEDS: ALBUTEROL SULF 2.5 MG/0.5ML(0.5%) NEB SOLN NEB PRN ×3 (06:23→19:41)
[2021-11-06] MEDS: ACETYLCYSTEINE 10 %(100MG/ML) SOL 4ML IN SCH ×3 (06:23→19:41)
[2021-11-06] MEDS: MEROPENEM 1GM IVPB 100 ML IV SCH ×3 (06:30→22:24)
[2021-11-06] MEDS: fentaNYL Drip 2500mCg/250mlNS 250 ML IV SCH ×2 (07:00→23:40)
[2021-11-06] MEDS: VANCOMYCIN 1GM/250ML 250 ML IV SCH (08:55)
[2021-11-06] MEDS: PANTOPRAZOLE 40 MG/10 ML VIAL INJ IV SCH (09:50)
[2021-11-06] MEDS: DexAMETHasone SOD PHOS 10MG/1ML VIAL INJ IV SCH (09:50)
[2021-11-06] MEDS: ASPirin 81 mg TAB PO SCH (09:50)
[2021-11-06] MEDS: FUROSEMIDE 40 MG/4 ML VIAL IV SCH (09:50)
[2021-11-06] MEDS: CHOLECALCIFEROL (VITD3) 2,000 UNIT CAP/TAB PO SCH (09:50)
[2021-11-06] MEDS: ZINC SULFATE 220mg CAP or TAB PO SCH (09:50)
[2021-11-06] MEDS: ASCORBIC ACID 1,000 MG TAB PO SCH (09:50)
[2021-11-06] MEDS: INSULIN LANTUS (GLARGINE) 1 /0.01ml (100units/ml) SC SCH (09:55)
[2021-11-06] MEDS ORDERED: DEXTROSE (50%) 50ML SYRG IV PRN (11:45)
[2021-11-06] MEDS: PROPOFOL 100 ML IV SCH (14:50)
[2021-11-06 14:52] LABS: Basophils # (auto) 0 10 ^3/uL (0-0.2); Basophils % (auto) 0.2 % (0.0-2.0); Eosinophils # (auto) 0.4 10 ^3/uL (0-0.8); Eosinophils % (auto) 3.7 % (0.0-7.0); Hematocrit 35.2 % (41.0-53.0); Hemoglobin 11.6 g/dL (13.5-17.5); Lymphocytes # (auto) 0.7 10 ^3/uL (0.4-5.4); Lymphocytes % (auto) 6.4 % (10.0-50.0); Mean Corpuscular Hemoglobin 32.2 pg (28.0-32.0); Mean Corpuscular Volume 97.7 fL (80.0-100.0); Monocytes # (auto) 0.5 10 ^3/uL (0-1.3); Monocytes % (auto) 4.8 % (0.0-12.0); Neutrophils # (auto) 9.6 10 ^3/uL (1.6-8.6); Neutrophils % (auto) 84.9 % (37.0-80.0); Nucleated Red Blood Cells % 0.1 %; Red Cell Distribution Width 15.8 % (11.8-14.3); White Blood Cell 11.3 10^3/uL (4.4-10.8)
[2021-11-06 15:04] LABS: BUN/Creatinine Ratio 37.2; Bilirubin, Direct 0.8 mg/dL (0-0.2); Calcium 8.1 mg/dL (8.5-10.1); Potassium 3.6 mmol/L (3.5-5.1)
[2021-11-06 15:07] LABS: Bilirubin, Total 1.2 mg/dL (0.2-1.0); Total Protein 5.8 g/dL (6.4-8.2)
[2021-11-06] MEDS: MIDAZOLAM DRIP 50 mg/50mL 50 ML IV SCH (15:20)
[2021-11-06] MEDS: NOREPINEPHRINE BITARTRATE 32 MG in SODIUM CHL 0.9% 218 ML IV SCH (18:45)
[2021-11-06] MEDS: ENOXAPARIN SOD 40 MG/0.4 ML SYRINGE SC SCH (22:24)
[2021-11-07] VITALS (55 sets, daily range): BP systolic 70–185; BP diastolic 39–106
[2021-11-07] MEDS: InsuLIN REG 1unit/0.01ml Soln (100units/ml) SC SCH ×5 (00:38→23:58)
[2021-11-07] MEDS: VANCOMYCIN 1GM/250ML 250 ML IV SCH ×2 (01:32→15:52)
[2021-11-07] MEDS: SODIUM CHLOR 0.9% PF (SALINE LOCK) 10ML VIAL/SYR IV SCH ×3 (05:23→21:47)
[2021-11-07] MEDS: ACCU-CHEK COMFORT CURVE STRIP VI SCH ×5 (05:23→23:57)
[2021-11-07 05:48] LABS: Basophils # (auto) 0.1 10 ^3/uL (0-0.2); Basophils % (auto) 0.9 % (0.0-2.0); Eosinophils # (auto) 0.2 10 ^3/uL (0-0.8); Eosinophils % (auto) 1.6 % (0.0-7.0); Hematocrit 34.4 % (41.0-53.0); Hemoglobin 11.3 g/dL (13.5-17.5); Lymphocytes # (auto) 0.5 10 ^3/uL (0.4-5.4); Lymphocytes % (auto) 5.2 % (10.0-50.0); Mean Corpuscular Hemoglobin 32.3 pg (28.0-32.0); Monocytes # (auto) 0.8 10 ^3/uL (0-1.3); Monocytes % (auto) 8.1 % (0.0-12.0); Neutrophils # (auto) 8.4 10 ^3/uL (1.6-8.6); Neutrophils % (auto) 84.2 % (37.0-80.0); Red Blood Cells 3.51 10^6/uL (4.5-5.90); Red Cell Distribution Width 15.6 % (11.8-14.3)
[2021-11-07 05:58] LABS: Albumin 1.9 g/dL (3.4-5.0); Calcium 8.3 mg/dL (8.5-10.1); Potassium 3.7 mmol/L (3.5-5.1)
[2021-11-07 06:01] LABS: Bilirubin, Total 1.2 mg/dL (0.2-1.0); Total Protein 5.4 g/dL (6.4-8.2)
[2021-11-07] MEDS: MEROPENEM 1GM IVPB 100 ML IV SCH ×3 (06:27→21:47)
[2021-11-07] MEDS: ACETYLCYSTEINE 10 %(100MG/ML) SOL 4ML IN SCH ×3 (06:34→18:36)
[2021-11-07] MEDS: ALBUTEROL SULF 2.5 MG/0.5ML(0.5%) NEB SOLN NEB PRN ×3 (06:34→18:36)
[2021-11-07 08:02] LABS: Lactic Acid w/Reflex 2.4 mmol/L (0.4-2.0)
[2021-11-07] MEDS: DexAMETHasone SOD PHOS 10MG/1ML VIAL INJ IV SCH (09:59)
[2021-11-07] MEDS: FUROSEMIDE 40 MG/4 ML VIAL IV SCH (10:00)
[2021-11-07] MEDS: PANTOPRAZOLE 40 MG/10 ML VIAL INJ IV SCH (10:00)
[2021-11-07] MEDS: ZINC SULFATE 220mg CAP or TAB PO SCH (10:00)
[2021-11-07] MEDS: ASCORBIC ACID 1,000 MG TAB PO SCH (10:00)
[2021-11-07] MEDS: ASPirin 81 mg TAB PO SCH (10:00)
[2021-11-07] MEDS: CHOLECALCIFEROL (VITD3) 2,000 UNIT CAP/TAB PO SCH (10:00)
[2021-11-07] MEDS: INSULIN LANTUS (GLARGINE) 1 /0.01ml (100units/ml) SC SCH (10:01)
[2021-11-07] MEDS: ENOXAPARIN SOD 40 MG/0.4 ML SYRINGE SC SCH ×2 (10:40→21:47)
[2021-11-07] MEDS: fentaNYL Drip 2500mCg/250mlNS 250 ML IV SCH (13:39)
[2021-11-07] MEDS: MIDAZOLAM DRIP 50 mg/50mL 50 ML IV SCH (17:45)
[2021-11-07] MEDS: NOREPINEPHRINE BITARTRATE 32 MG in SODIUM CHL 0.9% 218 ML IV SCH (18:45)
[2021-11-08] VITALS (42 sets, daily range): BP systolic 91–177; BP diastolic 60–105
[2021-11-08] MEDS: PROPOFOL 100 ML IV SCH (00:38)
[2021-11-08] MEDS: MIDAZOLAM DRIP 50 mg/50mL 50 ML IV SCH ×2 (00:39→12:35)
[2021-11-08] MEDS: fentaNYL Drip 2500mCg/250mlNS 250 ML IV SCH ×2 (02:09→21:25)
[2021-11-08] MEDS: MEROPENEM 1GM IVPB 100 ML IV SCH ×3 (05:51→22:27)
[2021-11-08] MEDS: ACCU-CHEK COMFORT CURVE STRIP VI SCH ×3 (05:51→17:51)
[2021-11-08] MEDS: SODIUM CHLOR 0.9% PF (SALINE LOCK) 10ML VIAL/SYR IV SCH ×3 (05:51→22:28)
[2021-11-08 05:53] LABS: Basophils # (auto) 0 10 ^3/uL (0-0.2); Basophils % (auto) 0.4 % (0.0-2.0); Eosinophils # (auto) 0.5 10 ^3/uL (0-0.8); Eosinophils % (auto) 3.9 % (0.0-7.0); Hematocrit 35.8 % (41.0-53.0); Hemoglobin 11.9 g/dL (13.5-17.5); Lymphocytes # (auto) 1.1 10 ^3/uL (0.4-5.4); Lymphocytes % (auto) 8.2 % (10.0-50.0); Mean Corpuscular Hemoglobin 32.3 pg (28.0-32.0); Mean Corpuscular Hgb Conc. 33.2 g/dL (32.0-36.0); Mean Corpuscular Volume 97.3 fL (80.0-100.0); Monocytes # (auto) 0.8 10 ^3/uL (0-1.3); Monocytes % (auto) 6.2 % (0.0-12.0); Neutrophils # (auto) 10.8 10 ^3/uL (1.6-8.6); Neutrophils % (auto) 81.3 % (37.0-80.0); Red Blood Cells 3.68 10^6/uL (4.5-5.90); Red Cell Distribution Width 15.6 % (11.8-14.3); White Blood Cell 13.2 10^3/uL (4.4-10.8)
[2021-11-08] MEDS: InsuLIN REG 1unit/0.01ml Soln (100units/ml) SC SCH ×3 (05:53→17:54)
[2021-11-08 06:16] LABS: Albumin 2.1 g/dL (3.4-5.0); Calcium 8.4 mg/dL (8.5-10.1); Potassium 3.4 mmol/L (3.5-5.1)
[2021-11-08 06:21] LABS: BUN/Creatinine Ratio 35.6; Bilirubin, Total 1.4 mg/dL (0.2-1.0); Magnesium 2.9 mg/dL (1.6-2.6); Total Protein 5.8 g/dL (6.4-8.2)
[2021-11-08] MEDS: VANCOMYCIN 1GM/250ML 250 ML IV SCH (08:00)
[2021-11-08] MEDS: ALBUTEROL SULF 2.5 MG/0.5ML(0.5%) NEB SOLN NEB PRN ×3 (09:58→18:45)
[2021-11-08] MEDS: ACETYLCYSTEINE 10 %(100MG/ML) SOL 4ML IN SCH ×3 (09:58→18:45)
[2021-11-08] MEDS: INSULIN LANTUS (GLARGINE) 1 /0.01ml (100units/ml) SC SCH (10:00)
[2021-11-08] MEDS: DexAMETHasone SOD PHOS 10MG/1ML VIAL INJ IV SCH (10:10)
[2021-11-08] MEDS: ASCORBIC ACID 1,000 MG TAB PO SCH (10:10)
[2021-11-08] MEDS: ASPirin 81 mg TAB PO SCH (10:10)
[2021-11-08] MEDS: ENOXAPARIN SOD 40 MG/0.4 ML SYRINGE SC SCH ×2 (10:10→22:28)
[2021-11-08] MEDS: ZINC SULFATE 220mg CAP or TAB PO SCH (10:10)
[2021-11-08] MEDS: CHOLECALCIFEROL (VITD3) 2,000 UNIT CAP/TAB PO SCH (10:10)
[2021-11-08] MEDS: PANTOPRAZOLE 40 MG/10 ML VIAL INJ IV SCH (10:10)
[2021-11-08] MEDS: FUROSEMIDE 40 MG/4 ML VIAL IV SCH (10:26)
[2021-11-08] MEDS: POTASSIUM CHL 10MEQ/50ML 50 ML IV SCH ×4 (11:45→14:45)
[2021-11-08] MEDS: NOREPINEPHRINE BITARTRATE 32 MG in SODIUM CHL 0.9% 218 ML IV SCH (12:51)
[2021-11-08] MEDS: QUEtiapine FUMARATE 25 MG TAB PO SCH (22:27)
[2021-11-09] VITALS (61 sets, daily range): BP systolic 80–164; BP diastolic 43–102
[2021-11-09] MEDS: MIDAZOLAM DRIP 50 mg/50mL 50 ML IV SCH ×2 (02:30→15:22)
[2021-11-09] MEDS: MEROPENEM 1GM IVPB 100 ML IV SCH ×3 (06:00→22:28)
[2021-11-09] MEDS: InsuLIN REG 1unit/0.01ml Soln (100units/ml) SC SCH ×5 (06:00→23:20)
[2021-11-09] MEDS: ACCU-CHEK COMFORT CURVE STRIP VI SCH ×5 (06:00→23:21)
[2021-11-09] MEDS: SODIUM CHLOR 0.9% PF (SALINE LOCK) 10ML VIAL/SYR IV SCH ×3 (06:00→22:28)
[2021-11-09] MEDS: ALBUTEROL SULF 2.5 MG/0.5ML(0.5%) NEB SOLN NEB PRN ×2 (06:31→19:16)
[2021-11-09] MEDS: ACETYLCYSTEINE 10 %(100MG/ML) SOL 4ML IN SCH ×2 (06:32→19:16)
[2021-11-09 06:44] LABS: Basophils # (auto) 0 10 ^3/uL (0-0.2); Basophils % (auto) 0.3 % (0.0-2.0); Eosinophils # (auto) 0.4 10 ^3/uL (0-0.8); Eosinophils % (auto) 3.2 % (0.0-7.0); Hematocrit 31.1 % (41.0-53.0); Hemoglobin 10.3 g/dL (13.5-17.5); Mean Corpuscular Hemoglobin 32.6 pg (28.0-32.0); Mean Corpuscular Volume 98.6 fL (80.0-100.0); Monocytes # (auto) 0.8 10 ^3/uL (0-1.3); Monocytes % (auto) 7.1 % (0.0-12.0); Neutrophils # (auto) 9.4 10 ^3/uL (1.6-8.6); Neutrophils % (auto) 80.4 % (37.0-80.0); Nucleated Red Blood Cells % 0.1 %; Red Blood Cells 3.15 10^6/uL (4.5-5.90); Red Cell Distribution Width 15.9 % (11.8-14.3); White Blood Cell 11.7 10^3/uL (4.4-10.8)
[2021-11-09 07:20] LABS: BUN/Creatinine Ratio 34.4; Calcium 8.2 mg/dL (8.5-10.1); Potassium 3.5 mmol/L (3.5-5.1)
[2021-11-09 07:54] LABS: Albumin 1.9 g/dL (3.4-5.0); Bilirubin, Direct 0.8 mg/dL (0-0.2)
[2021-11-09 08:18] LABS: Bilirubin, Total 1.4 mg/dL (0.2-1.0); Total Protein 5.2 g/dL (6.4-8.2)
[2021-11-09] MEDS: DexAMETHasone SOD PHOS 10MG/1ML VIAL INJ IV SCH (09:28)
[2021-11-09] MEDS: FUROSEMIDE 40 MG/4 ML VIAL IV SCH (09:30)
[2021-11-09] MEDS: FLUCONAZOLE 200MG/100ML 100 ML IV SCH ×2 (09:30→11:00)
[2021-11-09] MEDS: ASPirin 81 mg TAB PO SCH (09:30)
[2021-11-09] MEDS: ASCORBIC ACID 1,000 MG TAB PO SCH (09:31)
[2021-11-09] MEDS: QUEtiapine FUMARATE 25 MG TAB PO SCH ×2 (09:31→22:00)
[2021-11-09] MEDS: CHOLECALCIFEROL (VITD3) 2,000 UNIT CAP/TAB PO SCH (09:31)
[2021-11-09] MEDS: PANTOPRAZOLE 40 MG/10 ML VIAL INJ IV SCH (09:31)
[2021-11-09] MEDS: ZINC SULFATE 220mg CAP or TAB PO SCH (09:31)
[2021-11-09] MEDS: ENOXAPARIN SOD 40 MG/0.4 ML SYRINGE SC SCH ×2 (09:32→22:28)
[2021-11-09] MEDS: INSULIN LANTUS (GLARGINE) 1 /0.01ml (100units/ml) SC SCH (09:32)
[2021-11-09] MEDS: PROPOFOL 100 ML IV SCH (11:45)
[2021-11-09] MEDS: VANCOMYCIN 1GM/250ML 250 ML IV SCH ×2 (18:00→22:32)
[2021-11-09] MEDS: NOREPINEPHRINE BITARTRATE 32 MG in SODIUM CHL 0.9% 218 ML IV SCH (18:45)
[2021-11-10] VITALS (43 sets, daily range): BP systolic 76–175; BP diastolic 44–106
[2021-11-10] MEDS: fentaNYL Drip 2500mCg/250mlNS 250 ML IV SCH (01:25)
[2021-11-10] MEDS: MIDAZOLAM DRIP 50 mg/50mL 50 ML IV SCH (03:01)
[2021-11-10] MEDS: MEROPENEM 1GM IVPB 100 ML IV SCH (05:21)
[2021-11-10] MEDS: SODIUM CHLOR 0.9% PF (SALINE LOCK) 10ML VIAL/SYR IV SCH ×3 (05:24→22:29)
[2021-11-10] MEDS: ACCU-CHEK COMFORT CURVE STRIP VI SCH ×3 (05:54→17:46)
[2021-11-10] MEDS: InsuLIN REG 1unit/0.01ml Soln (100units/ml) SC SCH ×3 (05:54→17:45)
[2021-11-10] MEDS: ALBUTEROL SULF 2.5 MG/0.5ML(0.5%) NEB SOLN NEB PRN ×2 (06:43→19:10)
[2021-11-10] MEDS: ACETYLCYSTEINE 10 %(100MG/ML) SOL 4ML IN SCH ×3 (06:43→19:26)
[2021-11-10] MEDS: DexAMETHasone SOD PHOS 10MG/1ML VIAL INJ IV SCH (07:58)
[2021-11-10] MEDS: FLUCONAZOLE 200MG/100ML 100 ML IV SCH ×2 (08:03→10:11)
[2021-11-10] MEDS: FUROSEMIDE 40 MG/4 ML VIAL IV SCH (08:03)
[2021-11-10] MEDS: ZINC SULFATE 220mg CAP or TAB PO SCH (08:04)
[2021-11-10] MEDS: PANTOPRAZOLE 40 MG/10 ML VIAL INJ IV SCH (08:04)
[2021-11-10] MEDS: ASPirin 81 mg TAB PO SCH (08:04)
[2021-11-10] MEDS: CHOLECALCIFEROL (VITD3) 2,000 UNIT CAP/TAB PO SCH (08:05)
[2021-11-10] MEDS: ASCORBIC ACID 1,000 MG TAB PO SCH (08:05)
[2021-11-10] MEDS: ENOXAPARIN SOD 40 MG/0.4 ML SYRINGE SC SCH ×2 (08:05→22:00)
[2021-11-10] MEDS: NOREPINEPHRINE BITARTRATE 32 MG in SODIUM CHL 0.9% 218 ML IV SCH (08:12)
[2021-11-10] MEDS: PROPOFOL 100 ML IV SCH (08:12)
[2021-11-10] MEDS: QUEtiapine FUMARATE 25 MG TAB PO SCH ×2 (08:26→22:00)
[2021-11-10] MEDS: INSULIN LANTUS (GLARGINE) 1 /0.01ml (100units/ml) SC SCH (09:20)
[2021-11-10 11:57] LABS: Basophils # (auto) 0 10 ^3/uL (0-0.2); Eosinophils # (auto) 0.2 10 ^3/uL (0-0.8); Hemoglobin 11.4 g/dL (13.5-17.5); Lymphocytes # (auto) 0.2 10 ^3/uL (0.4-5.4); Neutrophils # (auto) 5.1 10 ^3/uL (1.6-8.6); White Blood Cell 5.8 10^3/uL (4.4-10.8)
[2021-11-10 12:01] LABS: Basophils % (auto) 0.3 % (0.0-2.0); Eosinophils % (auto) 3.5 % (0.0-7.0); Hematocrit 33.4 % (41.0-53.0); Lymphocytes % (auto) 3.6 % (10.0-50.0); Mean Corpuscular Hemoglobin 34.4 pg (28.0-32.0); Mean Corpuscular Volume 100.9 fL (80.0-100.0); Monocytes # (auto) 0.3 10 ^3/uL (0-1.3); Monocytes % (auto) 4.5 % (0.0-12.0); Neutrophils % (auto) 88.1 % (37.0-80.0); Nucleated Red Blood Cells % 0.4 %; Red Blood Cells 3.31 10^6/uL (4.5-5.90); Red Cell Distribution Width 15.6 % (11.8-14.3)
[2021-11-10 12:06] LABS: INR 1.18 (0.9-1.15)
[2021-11-10 12:32] LABS: Potassium 3.4 mmol/L (3.5-5.1)
[2021-11-10 12:39] LABS: Albumin 2.2 g/dL (3.4-5.0); BUN/Creatinine Ratio 37.2; Bilirubin, Total 1.3 mg/dL (0.2-1.0); Calcium 8.6 mg/dL (8.5-10.1)
[2021-11-11] VITALS (21 sets, daily range): BP systolic 88–152; BP diastolic 63–90
[2021-11-11 04:40] LABS: Basophils # (auto) 0 10 ^3/uL (0-0.2); Basophils % (auto) 0.3 % (0.0-2.0); Eosinophils # (auto) 0.3 10 ^3/uL (0-0.8); Eosinophils % (auto) 4.7 % (0.0-7.0); Hematocrit 35.2 % (41.0-53.0); Hemoglobin 11.5 g/dL (13.5-17.5); Lymphocytes # (auto) 0.7 10 ^3/uL (0.4-5.4); Lymphocytes % (auto) 11.6 % (10.0-50.0); Mean Corpuscular Hemoglobin 32.5 pg (28.0-32.0); Mean Corpuscular Hgb Conc. 32.6 g/dL (32.0-36.0); Mean Corpuscular Volume 99.5 fL (80.0-100.0); Monocytes # (auto) 0.4 10 ^3/uL (0-1.3); Monocytes % (auto) 6.5 % (0.0-12.0); Neutrophils # (auto) 4.8 10 ^3/uL (1.6-8.6); Neutrophils % (auto) 76.9 % (37.0-80.0); Nucleated Red Blood Cells % 0.2 %; Red Blood Cells 3.53 10^6/uL (4.5-5.90); Red Cell Distribution Width 15.5 % (11.8-14.3); White Blood Cell 6.2 10^3/uL (4.4-10.8)
[2021-11-11 04:58] LABS: BUN/Creatinine Ratio 32.1; Calcium 8.8 mg/dL (8.5-10.1); Potassium 3.4 mmol/L (3.5-5.1)
[2021-11-11] MEDS: SODIUM CHLOR 0.9% PF (SALINE LOCK) 10ML VIAL/SYR IV SCH ×3 (05:46→21:50)
[2021-11-11] MEDS: InsuLIN REG 1unit/0.01ml Soln (100units/ml) SC SCH ×5 (06:00→23:56)
[2021-11-11] MEDS: ACCU-CHEK COMFORT CURVE STRIP VI SCH ×5 (06:10→23:56)
[2021-11-11] MEDS: ALBUTEROL SULF 2.5 MG/0.5ML(0.5%) NEB SOLN NEB PRN ×3 (07:14→22:27)
[2021-11-11] MEDS: ACETYLCYSTEINE 10 %(100MG/ML) SOL 4ML IN SCH ×3 (07:14→22:27)
[2021-11-11] MEDS: FUROSEMIDE 40 MG/4 ML VIAL IV SCH (07:38)
[2021-11-11] MEDS: PANTOPRAZOLE 40 MG/10 ML VIAL INJ IV SCH (07:39)
[2021-11-11] MEDS: ASCORBIC ACID 1,000 MG TAB PO SCH (07:40)
[2021-11-11] MEDS: CHOLECALCIFEROL (VITD3) 2,000 UNIT CAP/TAB PO SCH (07:40)
[2021-11-11] MEDS: ENOXAPARIN SOD 40 MG/0.4 ML SYRINGE SC SCH ×2 (07:40→21:51)
[2021-11-11] MEDS: INSULIN LANTUS (GLARGINE) 1 /0.01ml (100units/ml) SC SCH (07:40)
[2021-11-11] MEDS: ZINC SULFATE 220mg CAP or TAB PO SCH (07:41)
[2021-11-11] MEDS: ASPirin 81 mg TAB PO SCH (07:41)
[2021-11-11] MEDS: QUEtiapine FUMARATE 25 MG TAB PO SCH ×2 (07:41→21:50)
[2021-11-11] MEDS: MIDAZOLAM DRIP 50 mg/50mL 50 ML IV SCH (07:42)
[2021-11-11] MEDS: fentaNYL Drip 2500mCg/250mlNS 250 ML IV SCH (07:42)
[2021-11-11] MEDS: NOREPINEPHRINE BITARTRATE 32 MG in SODIUM CHL 0.9% 218 ML IV SCH (07:42)
[2021-11-11] MEDS: PROPOFOL 100 ML IV SCH (07:42)
[2021-11-11] MEDS ORDERED: POTASSIUM PHOSPHATE 26.4 MEQ in SODIUM CHL 0.9% 100 ML IV ONE (12:00)
[2021-11-12] VITALS (13 sets, daily range): BP systolic 105–135; BP diastolic 70–93
[2021-11-12] MEDS: InsuLIN REG 1unit/0.01ml Soln (100units/ml) SC SCH ×3 (06:00→17:46)
[2021-11-12] MEDS: SODIUM CHLOR 0.9% PF (SALINE LOCK) 10ML VIAL/SYR IV SCH ×3 (06:09→21:52)
[2021-11-12] MEDS: ACCU-CHEK COMFORT CURVE STRIP VI SCH ×3 (06:09→17:46)
[2021-11-12] MEDS: ACETYLCYSTEINE 10 %(100MG/ML) SOL 4ML IN SCH (06:24)
[2021-11-12] MEDS: ALBUTEROL SULF 2.5 MG/0.5ML(0.5%) NEB SOLN NEB PRN (09:28)
[2021-11-12] MEDS: ASPirin 81 mg TAB PO SCH (10:22)
[2021-11-12] MEDS: CHOLECALCIFEROL (VITD3) 2,000 UNIT CAP/TAB PO SCH (10:23)
[2021-11-12] MEDS: QUEtiapine FUMARATE 25 MG TAB PO SCH ×2 (10:23→21:52)
[2021-11-12] MEDS: ENOXAPARIN SOD 40 MG/0.4 ML SYRINGE SC SCH (10:23)
[2021-11-12] MEDS ORDERED: ACETYLCYSTEINE 10 %(100MG/ML) SOL 4ML NEB PRN (17:15)
[2021-11-13] VITALS (7 sets, daily range): BP systolic 90–133; BP diastolic 62–73
[2021-11-13] MEDS: SODIUM CHLOR 0.9% PF (SALINE LOCK) 10ML VIAL/SYR IV SCH ×3 (05:28→22:20)
[2021-11-13] MEDS: InsuLIN REG 1unit/0.01ml Soln (100units/ml) SC SCH ×4 (05:28→17:59)
[2021-11-13] MEDS: ACCU-CHEK COMFORT CURVE STRIP VI SCH ×4 (06:00→17:58)
[2021-11-13] MEDS: ASPirin 81 mg TAB PO SCH (09:33)
[2021-11-13] MEDS: ENOXAPARIN SOD 40 MG/0.4 ML SYRINGE SC SCH (09:34)
[2021-11-13] MEDS: QUEtiapine FUMARATE 25 MG TAB PO SCH ×2 (09:34→22:20)
[2021-11-13] MEDS: CHOLECALCIFEROL (VITD3) 2,000 UNIT CAP/TAB PO SCH (09:34)
[2021-11-13] MEDS: LORazepam 2MG/ML-1ML VIAL IV PRN (09:36)
[2021-11-14] VITALS (7 sets, daily range): BP systolic 92–114; BP diastolic 60–70
[2021-11-14] MEDS: SODIUM CHLOR 0.9% PF (SALINE LOCK) 10ML VIAL/SYR IV SCH ×3 (06:04→21:51)
[2021-11-14 07:15] LABS: Basophils # (auto) 0 10 ^3/uL (0-0.2); Basophils % (auto) 0.3 % (0.0-2.0); Eosinophils # (auto) 0.5 10 ^3/uL (0-0.8); Eosinophils % (auto) 5.7 % (0.0-7.0); Hematocrit 35.3 % (41.0-53.0); Hemoglobin 11.8 g/dL (13.5-17.5); Lymphocytes # (auto) 0.9 10 ^3/uL (0.4-5.4); Lymphocytes % (auto) 10.7 % (10.0-50.0); Mean Corpuscular Hemoglobin 33.3 pg (28.0-32.0); Mean Corpuscular Hgb Conc. 33.5 g/dL (32.0-36.0); Mean Corpuscular Volume 99.2 fL (80.0-100.0); Monocytes # (auto) 0.6 10 ^3/uL (0-1.3); Monocytes % (auto) 7.5 % (0.0-12.0); Neutrophils # (auto) 6.2 10 ^3/uL (1.6-8.6); Neutrophils % (auto) 75.8 % (37.0-80.0); Nucleated Red Blood Cells % 0.2 %; Red Blood Cells 3.56 10^6/uL (4.5-5.90); Red Cell Distribution Width 15.9 % (11.8-14.3); White Blood Cell 8.2 10^3/uL (4.4-10.8)
[2021-11-14 07:19] LABS: INR 1.41 (0.9-1.15)
[2021-11-14 07:45] LABS: Albumin 2.3 g/dL (3.4-5.0); Calcium 8.2 mg/dL (8.5-10.1)
[2021-11-14 08:06] LABS: BUN/Creatinine Ratio 34.4; Bilirubin, Total 1.3 mg/dL (0.2-1.0); Total Protein 5.8 g/dL (6.4-8.2)
[2021-11-14 08:11] LABS: Potassium 2.9 mmol/L (3.5-5.1)
[2021-11-14] MEDS ORDERED: POTASSIUM CHL 20 Meq TABLET PO ONE ×2 (09:45→15:15)
[2021-11-14] MEDS: ASPirin 81 mg TAB PO SCH (09:46)
[2021-11-14] MEDS: ASCORBIC ACID 500 MG TAB PO SCH ×2 (09:48→22:19)
[2021-11-14] MEDS: ENOXAPARIN SOD 40 MG/0.4 ML SYRINGE SC SCH (09:48)
[2021-11-14] MEDS: CHOLECALCIFEROL (VITD3) 2,000 UNIT CAP/TAB PO SCH (09:48)
[2021-11-14] MEDS: LORazepam 2MG/ML-1ML VIAL IV PRN (09:49)
[2021-11-14] MEDS: CARVEDILOL 3.125 MG TAB PO SCH (22:00)
[2021-11-14] MEDS: SACUBITRIL-VALSARTAN 24mg/26mg TAB PO SCH (22:00)
[2021-11-15 05:00] VITALS: BP 103/64
[2021-11-15] MEDS: SODIUM CHLOR 0.9% PF (SALINE LOCK) 10ML VIAL/SYR IV SCH ×2 (06:23→14:00)
[2021-11-15 09:00] VITALS: BP 92/75
[2021-11-15] MEDS: ASPirin 81 mg TAB PO SCH (10:00)
[2021-11-15] MEDS: CARVEDILOL 3.125 MG TAB PO SCH (10:00)
[2021-11-15] MEDS: SACUBITRIL-VALSARTAN 24mg/26mg TAB PO SCH (10:00)
[2021-11-15] MEDS: CHOLECALCIFEROL (VITD3) 2,000 UNIT CAP/TAB PO SCH (10:00)
[2021-11-15] MEDS: ASCORBIC ACID 500 MG TAB PO SCH (10:00)
[2021-11-15] MEDS: ENOXAPARIN SOD 40 MG/0.4 ML SYRINGE SC SCH (10:00)
[2021-11-15 12:03] LABS: Basophils # (auto) 0 10 ^3/uL (0-0.2); Basophils % (auto) 0.4 % (0.0-2.0); Eosinophils # (auto) 0.2 10 ^3/uL (0-0.8); Eosinophils % (auto) 3.1 % (0.0-7.0); Hematocrit 35.9 % (41.0-53.0); Lymphocytes # (auto) 0.7 10 ^3/uL (0.4-5.4); Mean Corpuscular Hemoglobin 33.3 pg (28.0-32.0); Mean Corpuscular Hgb Conc. 33.4 g/dL (32.0-36.0); Mean Corpuscular Volume 99.9 fL (80.0-100.0); Monocytes # (auto) 0.7 10 ^3/uL (0-1.3); Neutrophils # (auto) 5.5 10 ^3/uL (1.6-8.6); Neutrophils % (auto) 76.5 % (37.0-80.0); Nucleated Red Blood Cells % 0.2 %; Red Blood Cells 3.59 10^6/uL (4.5-5.90); Red Cell Distribution Width 15.5 % (11.8-14.3); White Blood Cell 7.2 10^3/uL (4.4-10.8)
[2021-11-15 12:19] LABS: Albumin 2.1 g/dL (3.4-5.0); Bilirubin, Direct 0.5 mg/dL (0-0.2); Potassium 3.6 mmol/L (3.5-5.1)
[2021-11-15 13:00] VITALS: BP 108/72
[2021-11-15] MEDS ORDERED: ASCO500T11 PO (14:39)
[2021-11-15] MEDS ORDERED: SACU1TAB PO (14:39)
[2021-11-15] MEDS ORDERED: CARV3.1240 PO (14:39)
[2021-11-15] MEDS ORDERED: ATOR10TA PO (14:39)
[2021-11-15] MEDS ORDERED: ASPI-378 PO (14:39)
[2021-11-15] MEDS ORDERED: ALBUAER3 IN (14:39)
[2021-11-15 15:00] VITALS: BP 96/61
[2021-11-15 15:32] VITALS: BP 108/72
[2021-11-15 22:07] VITALS: BP 106/70
== END 2021-11-15 21:40 | DRG 853 ==
LOC: EDBD 15:06 → ER 15:06 → TELE 23:30 → TELE-EAST 10-16 22:16 → TELE-E-ADS 10-20 10:37 → ICU WEST 10-20 12:43 → TELE-EAST 11-12 14:23
PROVIDERS: ADMIT Nurse Practitioner Family; ATTEND Internal Medicine
PROC: XW033E5 Introduction of Remdesivir Anti-infective into Peripheral Vein, Percutaneous Approach, New Technology Group 5 (ICD-10-PCS; 2021-10-16)
PROC: 5A02210 Assistance with Cardiac Output using Balloon Pump, Continuous (ICD-10-PCS; principal; 2021-10-20)
PROC: 4A023N7 Measurement of Cardiac Sampling and Pressure, Left Heart, Percutaneous Approach (ICD-10-PCS; 2021-10-20)
PROC: B2111ZZ Fluoroscopy of Multiple Coronary Arteries using Low Osmolar Contrast (ICD-10-PCS; 2021-10-20)
PROC: B2151ZZ Fluoroscopy of Left Heart using Low Osmolar Contrast (ICD-10-PCS; 2021-10-20)
PROC: 5A09357 Assistance with Respiratory Ventilation, Less than 24 Consecutive Hours, Continuous Positive Airway Pressure (ICD-10-PCS; 2021-10-20)
PROC: 5A1955Z Respiratory Ventilation, Greater than 96 Consecutive Hours (ICD-10-PCS; 2021-10-20)
PROC: 0BH17EZ Insertion of Endotracheal Airway into Trachea, Via Natural or Artificial Opening (ICD-10-PCS; 2021-10-20)
PROC: 5A09357 Assistance with Respiratory Ventilation, Less than 24 Consecutive Hours, Continuous Positive Airway Pressure (ICD-10-PCS; 2021-11-10)
PROC: 05HD33Z Insertion of Infusion Device into Right Cephalic Vein, Percutaneous Approach (ICD-10-PCS; 2021-11-11)
PROC: B54MZZA Ultrasonography of Right Upper Extremity Veins, Guidance (ICD-10-PCS; 2021-11-11)
DX: A41.89 Other specified sepsis (principal); U07.1 COVID-19; J12.82 Pneumonia due to coronavirus disease 2019; I21.A1 Myocardial infarction type 2; I50.33 Acute on chronic diastolic (congestive) heart failure; J96.01 Acute respiratory failure with hypoxia; N17.0 Acute kidney failure with tubular necrosis; R57.0 Cardiogenic shock; E87.0 Hyperosmolality and hypernatremia; J98.11 Atelectasis; Z99.11 Dependence on respirator [ventilator] status; R17 Unspecified jaundice; I42.0 Dilated cardiomyopathy; I11.0 Hypertensive heart disease with heart failure; E66.01 Morbid (severe) obesity due to excess calories; D69.59 Other secondary thrombocytopenia; M10.9 Gout, unspecified; K59.00 Constipation, unspecified; E78.5 Hyperlipidemia, unspecified; E87.5 Hyperkalemia; I25.10 Atherosclerotic heart disease of native coronary artery without angina pectoris; D89.839 Cytokine release syndrome, grade unspecified; F41.9 Anxiety disorder, unspecified; R00.1 Bradycardia, unspecified; R33.9 Retention of urine, unspecified; R73.9 Hyperglycemia, unspecified; E16.2 Hypoglycemia, unspecified; E87.6 Hypokalemia; Z82.49 Family history of ischemic heart disease and other diseases of the circulatory system; Z95.5 Presence of coronary angioplasty implant and graft; I25.2 Old myocardial infarction; Z88.0 Allergy status to penicillin; Z68.33 Body mass index [BMI] 33.0-33.9, adult
CPT/HCPCS: 33970; 36415; 36600; 71045; 71275; 76775; 80048; 80053; 80061; 80076; 80202; 80307; 81001; 82306; 82565; 82570; 82728; 82805; 82962; 83036; 83605; 83615; 83735; 83880; 83970; 84100; 84132; 84156; 84443; 84484; 85007; 85025; 85027; 85379; 85610; 85730; 86141; 86850; 86900; 86901; 87040; 87070; 87077; 87081; 87086; 87205; 87426; 92610; 93005; 93306; 93458; 93970; 94002; 94003; 94640; 94660; 96361; 96374; 96375; 97110; 97116; 97163; 97530; 99152; 99153; 99291; C9113; G0378; J0171; J0330; J1100; J1450; J1815; J2185; J2250; J2405; J2704; J3490; J7060; Q9967

== ENCOUNTER 2023-09-13 19:34 | Emergency (ER) | payer MEDICARE, OTHER ==
[~2023-09-13] VITALS: Ht 182.9 cm; Wt 100.0 kg
[~2023-09-13 19:34] MED LIST changes: +ALBUAER3 IN; +ASCO500T11 PO; +ASPI-378 PO; +ATOR10TA PO; +CARV3.1240 PO; +CHOL1TAB42 PO; -COLCPOW2 PO; -INDO50CA82 PO; +SACU1TAB PO; +SIMV40TA18 PO
[2023-09-13 19:40] VITALS: BP 115/82
[2023-09-13] MEDS ORDERED: ACETAMINOPHEN 500 MG TAB PO ONE (19:45)
[2023-09-13 20:49] LABS: Basophils # (auto) 0 10 ^3/uL (0-0.2); Basophils % (auto) 0.4 % (0.0-2.0); Eosinophils # (auto) 0 10 ^3/uL (0-0.8); Eosinophils % (auto) 0.6 % (0.0-7.0); Hematocrit 46.2 % (41.0-53.0); Hemoglobin 15.5 g/dL (13.5-17.5); Lymphocytes # (auto) 0.7 10 ^3/uL (0.4-5.4); Mean Corpuscular Hemoglobin 32.8 pg (28.0-32.0); Mean Corpuscular Hgb Conc. 33.6 g/dL (32.0-36.0); Mean Corpuscular Volume 97.5 fL (80.0-100.0); Monocytes % (auto) 12.6 % (0.0-12.0); Neutrophils # (auto) 5.9 10 ^3/uL (1.6-8.6); Neutrophils % (auto) 77.4 % (37.0-80.0); Nucleated Red Blood Cells % 0.1 %; Red Blood Cells 4.73 10^6/uL (4.5-5.90); Red Cell Distribution Width 12.6 % (11.8-14.3); White Blood Cell 7.6 10^3/uL (4.4-10.8)
[2023-09-13 21:01] LABS: Alanine Aminotransferase 26 U/L (7-40); Albumin 4.7 g/dL (3.2-4.8); Alkaline Phosphatase 92 U/L (46-116); Anion Gap 11 (5-15); Aspartate Aminotransferase 22 U/L (13-40); BUN/Creatinine Ratio 12.7 (10.0-20.0); Bilirubin, Total 1.3 mg/dL (0.2-1.0); Blood Urea Nitrogen 21 mg/dL (9-23); Calcium 9.6 mg/dL (8.5-10.1); Carbon Dioxide 23 mmol/L (20-30); Chloride 103 mmol/L (98-107); Glucose 162 mg/dL (74-106); Potassium 4.4 mmol/L (3.5-5.1); Sodium 137 mmol/L (136-145); Total Protein 7.2 g/dL (5.7-8.2)
[2023-09-13 21:29] VITALS: PULSE 88; RESP 20; O2SAT 95
[2023-09-13 22:13] LABS: COVID19 ANTIGEN SOFIA FIA NEGATIVE (NEGATIVE); Rapid Influenza A Negative (Negative); Rapid Influenza B Negative (Negative)
[2023-09-13 22:54] LABS: Urine Bacteria NONE SEEN /hpf (None Seen); Urine Blood Negative /uL (Negative); Urine Clarity Clear (Clear); Urine Color Yellow (Yellow); Urine Protein, UAD TRACE (Negative); Urine Specific Gravity 1.029 (1.001-1.035); Urine Urobilinogen Normal (Negative); Urine WBC <1 /hpf (0 - 3); Urine pH 5.5 (5.0-8.0)
[2023-09-13] MEDS ORDERED: guaiFENesin-DM 100/10mg/5ml SYR PO ONE (23:30)
[2023-09-13] MEDS ORDERED: IPRATROPIUM BROM 0.5 MG/2.5ML INH SOL NEB ONE (23:30)
[2023-09-13] MEDS ORDERED: ALBUTEROL SULF 2.5 MG/0.5ML(0.5%) NEB SOLN NEB ONE (23:30)
[2023-09-13] MEDS ORDERED: methylPREDNISolone SOD SUCC 125 MG/2 ML VL IV ONE (23:30)
[2023-09-13] MEDS ORDERED: AZITHROMYCIN 500MG/ 250ML 250 ML IV ONE (23:30)
[2023-09-13] MEDS ORDERED: SODIUM CHLORIDE 0.9% 500 ML IV ONE (23:30)
[2023-09-13] MEDS ORDERED: cefTRIAXone 1GM/50ML D5W 50 ML IV SCH (23:30)
[2023-09-13] MEDS ORDERED: ONDANSETRON HCL 4 MG/2 ML VIAL IV ONE (23:30)
[2023-09-13] MEDS ORDERED: ACETAMINOPHEN 325 MG TAB PO ONE (23:30)
[2023-09-13] MEDS ORDERED: ASPirin 81 mg TAB PO ONE (23:30)
[2023-09-13] MEDS ORDERED: ACETAMINOPHEN 325 MG TAB PO PRN (23:30)
== END 2023-09-14 00:27 | disposition left against medical advice (07) ==
LOC: EDBD 19:34 → ER 19:34
DX: J18.9 Pneumonia, unspecified organism (principal); I10 Essential (primary) hypertension; I25.2 Old myocardial infarction; F12.10 Cannabis abuse, uncomplicated; Z88.0 Allergy status to penicillin; Z20.822 Contact with and (suspected) exposure to COVID-19
CPT/HCPCS: 36415; 71045; 80053; 81001; 83605; 85025; 87426; 87804